=== PATIENT | male | born 1960 ===

== ENCOUNTER 2017-07-03 19:47 | Emergency (ER) | payer MEDICAID, MEDICARE, OTHER ==
[2017-07-03 19:49] VITALS: BMI 25.7
--- NOTE | 2017-07-03 20:07 | C.PDOC ---
History Of Present Illness 56 y/o male brought to the emergency department via ambulance for public intoxication. Patient admits to drinking alcohol for a while today. Denies any fall, pain, or injury. No homicidal or suicidal ideation. Patient is a heavy smoker and does report some wheezing for the past several days. Time Seen by Provider: 07/03/17 20:05 Chief Complaint (Nursing): Substance Abuse History Per: Patient History/Exam Limitations: no limitations Onset/Duration Of Symptoms: Hrs Current Symptoms Are (Timing): Still Present Modifying Factor(s): Alcohol Involuntary Hold By: None Additional History Per: EMS Past Medical History Reviewed: Historical Data, Nursing Documentation, Vital Signs Vital Signs: Last Vital Signs Temp 98.2 F 07/04/17 03:42 Pulse 91 H 07/04/17 03:42 Resp 20 07/04/17 03:42 BP 144/75 07/04/17 03:42 Pulse Ox 96 07/04/17 04:31 - Medical History PMH: Anemia, Anxiety, Asthma, Back Problems, Bipolar Disorder, COPD, Depression , Diabetes, Gastritis (secondary to ETOH), GERD, Hypercholesterolemia, Pancreatitis (secondary to ETOH), Schizophrenia, Seizures (secondary to ETOH withdrawal), Chronic Pain (low back pain ) Denies: CHF, Dementia, Emphysema, Parkinson's Disease, Peripheral Edema, Pneumonia, Pulmonary Embolism, Chronic Kidney Disease, Sexually Transmitted Disease, Sleep Apnea Surgical History: Back Surgery Denies: Pacemaker - [facility] Procedures ALCOHOL DETOXIFICATION (12/12/12) EXCISION OF ASCENDING COLON, ENDO, DIAGN (06/18/15) EXCISION OF CECUM, ENDO, DIAGN (06/18/15) EXCISION OF DESCENDING COLON, ENDO, DIAGN (06/18/15) EXCISION OF DUODENUM, ENDO, DIAGN (06/18/15) EXCISION OF ESOPHAGOGASTRIC JUNCTION, ENDO, DIAGN (06/18/15) EXCISION OF ILEUM, ENDO, DIAGN (06/18/15) EXCISION OF LUMBAR VERTEBRA, PERCUTANEOUS APPROACH, DIAGN (07/24/16) EXCISION OF STOMACH, ENDO, DIAGN (06/18/15) GROUP PSYCHOTHERAPY (04/07/17) INDIV PSYCHOTHERAPY FOR SUBSTANCE ABUSE, COGNITIV BEHAVIORAL (04/07/17) INDIV PSYCHOTHERAPY FOR SUBSTANCE ABUSE, MOTIVATION ENHANCE (04/07/17) INDIVID PSYCHOTHERAP NEC (09/16/14) INDIVIDUAL PSYCHOTHERAPY, BEHAVIORAL (10/21/16) INDIVIDUAL PSYCHOTHERAPY, COGNITIVE-BEHAVIORAL (01/26/17) INDIVIDUAL PSYCHOTHERAPY, SUPPORTIVE (08/06/16) INJECT/INFUSE NEC (10/13/14) MEDICATION MANAGEMENT (03/12/16) OTHER COUNSELING (04/26/16) OTHER GROUP THERAPY (09/16/14) PSYCHIA INTERV/EVAL NEC (08/18/14) REPOSITION LUMBAR VERTEBRA, PERCUTANEOUS APPROACH (07/24/16) SUPPLEMENT LUMBAR VERTEBRA WITH SYNTH SUB, PERC APPROACH (07/24/16) Family History: States: Diabetes - Social History Hx Tobacco Use: Yes (Heavy) Hx Alcohol Use: Yes Hx Substance Use: No - Immunization History Hx Tetanus Toxoid Vaccination: Yes (As per patient, TDaP uptodate ( about 3 years ago)) Hx Influenza Vaccination: No Hx Pneumococcal Vaccination: No Review Of Systems Except As Marked, All Systems Reviewed And Found Negative. Musculoskeletal: Negative for: Arm Pain, Back Pain, Leg Pain Psych: Negative for: Suicidal ideation (or homicidal) Physical Exam - Physical Exam Appears: Non-toxic, No Acute Distress Skin: Normal Color, Warm, Dry Head: Atraumatic, Normacephalic Eye(s): bilateral: Normal Inspection, EOMI Nose: Normal Oral Mucosa: Moist Neck: Normal ROM, Supple Chest: Symmetrical Cardiovascular: Rhythm Regular, No Murmur Respiratory: No Accessory Muscle Use, Rhonchi, Wheezing (slight), No Other ( respiratory distress) Extremity: Bilateral: Atraumatic, Normal Color And Temperature, Normal ROM Neurological/Psych: Normal Speech, Other (Alert and awake; answering questions appropriately) Gait: Unsteady ED Course And Treatment - Laboratory Results Result Diagrams: 07/03/17 20:14 07/04/17 01:42 O2 Sat by Pulse Oximetry: 96 (RA) Pulse Ox Interpretation: Normal - Radiology CXR: Interpreted by Me, Viewed By Me CXR Interpretation: Yes: No Acute Disease. No: Infiltrates Medical Decision Making Medical Decision Making: Time: 20:05 Initial Plan: --Blood work --Alcohol serum --Urine drug screen --Duoneb 3 ml INH --Peak Flow pre/post treatment Disposition - Disposition Referrals: Non [facility] Provider, [Primary Care Provider] - Disposition: HOME/ ROUTINE Disposition Time: 05:25 Condition: STABLE Prescriptions: Albuterol Sulfate [Proventil Hfa] 0.09 mg IH Q4 #1 inhaler Forms: [facility] (Korean) - POA Present On Arrival: None - Clinical Impression Clinical Impression: Alcohol abuse with intoxication, Asthma - Scribe Statement The provider has reviewed the documentation as recorded by the Scribe (Otilia Nicholas) Provider Attestation: All medical record entries made by the Scribe were at my direction and personally dictated by me. I have reviewed the chart and agree that the record accurately reflects my personal performance of the history, physical exam, medical decision making, and the department course for this patient. I have also personally directed, reviewed, and agree with the discharge instructions and disposition.
[2017-07-03] MEDS ORDERED: Albuterol-Ipratrop 3 mg / 0.5 (3 ml) UD INH STA (20:14)
[2017-07-03 20:16] LABS: BASO # 0.1 K/uL (0.0-0.2); BASO % 1.2 % (0.0-2.0); EOS # 0.2 K/uL (0.0-0.7); EOS % 1.8 % (0.0-4.0); HEMOGLOBIN 13.4 g/dL (12.0-18.0); LYMPH # 5.1 K/uL (1.0-4.3); LYMPH % 56.9 % (20.0-40.0); MEAN CELL VOLUME 94.8 fL (80.0-94.0); MEAN CORPUSCULAR HEMOGLOBIN 33.4 pg (27.0-31.0); MEAN CORPUSCULAR HGB CONC 35.3 g/dL (33.0-37.0); MEAN PLATELET VOLUME 6.7 fL (7.2-11.7); MONO # 0.6 K/uL (0.0-0.8); MONO % 7.1 % (0.0-10.0); NEUT # 2.9 K/uL (1.8-7.0); NRBC % 0.1 % (0.0-2.0); RED CELL DISTRIBUTION WIDTH 17.3 % (11.5-14.5); WHITE BLOOD COUNT 8.9 K/uL (4.8-10.8)
[2017-07-03] MEDS ORDERED: Albuterol-Ipratrop 3 mg / 0.5 (3 ml) UD ONE (20:16)
[2017-07-03 20:34] LABS: ALB/GLOB RATIO 1.1 (1.0-2.1); ALT/SGPT 15 U/L (21-72); AST/SGOT 60 U/L (17-59); BLOOD UREA NITROGEN 8 mg/dL (9-20); CALCIUM 8.3 mg/dl (8.6-10.4); GFR AFRICAN-AMERICAN > 60; GFR NON-AFRICAN AMERICAN > 60
[2017-07-03] MEDS ORDERED: Multivitamin (MVI) 10 ML, Thiamine 100 MG, Folic Acid 1 MG in Sodium Chloride 0.9% 1,00... IV ONE (21:23)
[2017-07-03 21:24] LABS: BARBITURATES, UR NEGATIVE (NEGATIVE); OPIATES, UR NEGATIVE (NEGATIVE); PHENCYCLIDINE, UR NEGATIVE (NEGATIVE)
[2017-07-03 21:26] LABS: BENZODIAZEPINES, UR POSITIVE (NEGATIVE)
[2017-07-03] MEDS ORDERED: Potassium Chloride 20 mEq 100 ML ONE (21:42)
[2017-07-04 01:56] LABS: BLOOD UREA NITROGEN 7 mg/dL (9-20); CALCIUM 8.2 mg/dl (8.6-10.4); GFR AFRICAN-AMERICAN > 60; GFR NON-AFRICAN AMERICAN > 60
[2017-07-04] MEDS ORDERED: Potassium Chloride 20 mEq 100 ML ONE (03:33)
[2017-07-04 03:43] VITALS: BP 144/75; PULSE 91; RESP 20; TEMP 98.2
[2017-07-04 04:31] VITALS: O2SAT 96
--- NOTE | 2017-07-04 13:22 | RAD ---
PROCEDURE: CHEST RADIOGRAPH, 1 VIEW HISTORY: SOB/ wheezing COMPARISON: None available. FINDINGS: LUNGS: Clear. PLEURA: No pneumothorax or pleural fluid seen. CARDIOVASCULAR: Normal. OSSEOUS STRUCTURES: Degenerative changes. VISUALIZED UPPER ABDOMEN: Normal. OTHER FINDINGS: None. IMPRESSION: No active disease.
== END 2017-07-04 06:54 | disposition home or self-care (01) ==
LOC: SUPCPDRO 19:47 → C.ER 19:47
DX: F10.129 Alcohol abuse with intoxication, unspecified (principal); J45.909 Unspecified asthma, uncomplicated; E11.9 Type 2 diabetes mellitus without complications; E78.00 Pure hypercholesterolemia, unspecified; F20.9 Schizophrenia, unspecified; F17.200 Nicotine dependence, unspecified, uncomplicated
CPT/HCPCS: 71045; 80048; 80053; 80320; 80324; 80345; 80346; 80349; 80353; 80358; 80361; 83992; 85025; 96361; 96374; 99285; J3411; J3480; J7040

== ENCOUNTER 2017-07-14 19:46 | Emergency (ER) | payer OTHER ==
[2017-07-14 19:46] VITALS: BMI 25.7
[2017-07-14] MEDS ORDERED: Albuterol-Ipratrop 3 mg / 0.5 (3 ml) UD IH STA (20:21)
[2017-07-14 20:52] LABS: BASO # 0.1 K/uL (0.0-0.2); BASO % 1.2 % (0.0-2.0); EOS # 0.2 K/uL (0.0-0.7); EOS % 2.2 % (0.0-4.0); HEMOGLOBIN 13.2 g/dL (12.0-18.0); LYMPH # 4.1 K/uL (1.0-4.3); LYMPH % 56.5 % (20.0-40.0); MEAN CORPUSCULAR HGB CONC 34.9 g/dL (33.0-37.0); MEAN PLATELET VOLUME 7.1 fL (7.2-11.7); MONO # 0.4 K/uL (0.0-0.8); MONO % 5.6 % (0.0-10.0); NEUT # 2.5 K/uL (1.8-7.0); NEUT % 34.5 % (50.0-75.0); NRBC % 0.1 % (0.0-2.0); RBC 3.9 Mil/uL (4.40-5.90); RED CELL DISTRIBUTION WIDTH 17.3 % (11.5-14.5); WHITE BLOOD COUNT 7.3 K/uL (4.8-10.8)
[2017-07-14 20:56] LABS: MEAN CELL VOLUME 97.4 fL (80.0-94.0)
[2017-07-14 21:03] LABS: ALB/GLOB RATIO 1.3 (1.0-2.1); ALBUMIN 4.2 g/dL (3.5-5.0); ALT/SGPT 48 U/L (21-72); AST/SGOT 72 U/L (17-59); BLOOD UREA NITROGEN 9 mg/dL (9-20); CALCIUM 8.2 mg/dl (8.6-10.4); GFR AFRICAN-AMERICAN > 60; GFR NON-AFRICAN AMERICAN > 60
[2017-07-14] MEDS ORDERED: Magnesium Sulfate 1 gm in D5W 1 GM/100 ML BAG IVPB STA (21:10)
[2017-07-14] MEDS ORDERED: Potassium Chloride 20 mEq ER Tab PO STA (21:11)
[2017-07-14 21:14] LABS: B-TYPE NATRIURETIC PEPTIDE 18.3 pg/mL (0-900)
[2017-07-14] MEDS ORDERED: Multivitamin (MVI) 10 ML, Thiamine 100 MG, Folic Acid 1 MG in Sodium Chloride 0.9% 1,00... IV STA (21:21)
[2017-07-14] MEDS ORDERED: Potassium Chloride 20 mEq ER Tab PO ONE (21:25)
[2017-07-14] MEDS ORDERED: Magnesium Sulfate 1 gm in D5W 1 GM/100 ML BAG IVPB ONE (21:25)
[2017-07-14 21:26] LABS: SQUAMOUS EPITHIAL < 1 /hpf (0-5); URINE BILIRUBIN NEGATIVE (NEGATIVE); URINE BLOOD NEGATIVE (NEGATIVE); URINE CLARITY Clear (Clear); URINE COLOR Straw (YELLOW); URINE GLUCOSE (UA) NORMAL (Normal); URINE LEUKOCYTE ESTERASE NEG Leu/uL (Negative); URINE PROTEIN NEGATIVE (NEGATIVE); URINE UROBILINOGEN NORMAL mg/dL (0.2-1.0)
[2017-07-14 21:40] LABS: BARBITURATES, UR NEGATIVE (NEGATIVE); OPIATES, UR NEGATIVE (NEGATIVE); PHENCYCLIDINE, UR NEGATIVE (NEGATIVE)
[2017-07-14 21:42] LABS: BENZODIAZEPINES, UR POSITIVE (NEGATIVE)
[2017-07-14] MEDS ORDERED: Multiple Vitamins Tab PO STA (21:49)
--- NOTE | 2017-07-14 23:27 | C.PDOC ---
Time Seen by Provider: 07/14/17 20:07 Chief Complaint (Nursing): Shortness Of Breath History Per: Patient, EMS History/Exam Limitations: intoxication Onset/Duration Of Symptoms: Hrs Current Symptoms Are (Timing): Still Present Current Respiratory Medications: See Home Med List Severity: Mild Reports Recently: Seen In ED Additional History Per: Prior Records Past Medical History Reviewed: Historical Data, Nursing Documentation, Vital Signs Vital Signs: Last Vital Signs Temp 98.7 F 07/14/17 19:50 Pulse 100 H 07/14/17 19:50 Resp 27 H 07/14/17 19:50 BP 154/100 H 07/14/17 19:50 Pulse Ox 100 07/14/17 19:50 - Medical History PMH: Anemia, Anxiety, Asthma, Back Problems, Bipolar Disorder, COPD, Depression , Diabetes, Gastritis (secondary to ETOH), GERD, Hypercholesterolemia, Pancreatitis (secondary to ETOH), Schizophrenia, Seizures (secondary to ETOH withdrawal), Chronic Pain (low back pain ) Surgical History: Back Surgery - [facility] Procedures ALCOHOL DETOXIFICATION (12/12/12) EXCISION OF ASCENDING COLON, ENDO, DIAGN (06/18/15) EXCISION OF CECUM, ENDO, DIAGN (06/18/15) EXCISION OF DESCENDING COLON, ENDO, DIAGN (06/18/15) EXCISION OF DUODENUM, ENDO, DIAGN (06/18/15) EXCISION OF ESOPHAGOGASTRIC JUNCTION, ENDO, DIAGN (06/18/15) EXCISION OF ILEUM, ENDO, DIAGN (06/18/15) EXCISION OF LUMBAR VERTEBRA, PERCUTANEOUS APPROACH, DIAGN (07/24/16) EXCISION OF STOMACH, ENDO, DIAGN (06/18/15) GROUP PSYCHOTHERAPY (04/07/17) INDIV PSYCHOTHERAPY FOR SUBSTANCE ABUSE, COGNITIV BEHAVIORAL (04/07/17) INDIV PSYCHOTHERAPY FOR SUBSTANCE ABUSE, MOTIVATION ENHANCE (04/07/17) INDIVID PSYCHOTHERAP NEC (09/16/14) INDIVIDUAL PSYCHOTHERAPY, BEHAVIORAL (10/21/16) INDIVIDUAL PSYCHOTHERAPY, COGNITIVE-BEHAVIORAL (01/26/17) INDIVIDUAL PSYCHOTHERAPY, SUPPORTIVE (08/06/16) INJECT/INFUSE NEC (10/13/14) MEDICATION MANAGEMENT (03/12/16) OTHER COUNSELING (04/26/16) OTHER GROUP THERAPY (09/16/14) PSYCHIA INTERV/EVAL NEC (08/18/14) REPOSITION LUMBAR VERTEBRA, PERCUTANEOUS APPROACH (07/24/16) SUPPLEMENT LUMBAR VERTEBRA WITH SYNTH SUB, PERC APPROACH (07/24/16) Family History: States: Diabetes - Social History Hx Tobacco Use: Yes (Heavy) Hx Alcohol Use: Yes Hx Substance Use: Yes - Immunization History Hx Tetanus Toxoid Vaccination: Yes (As per patient, TDaP uptodate ( about 3 years ago)) Hx Influenza Vaccination: No Hx Pneumococcal Vaccination: No Review Of Systems Except As Marked, All Systems Reviewed And Found Negative. Constitutional: Negative for: Fever ENT: Negative for: Throat Pain Cardiovascular: Negative for: Chest Pain Respiratory: Negative for: Hemoptysis Gastrointestinal: Negative for: Abdominal Pain Musculoskeletal: Negative for: Neck Pain Neurological: Negative for: Weakness, Numbness Physical Exam - Physical Exam Appears: Non-toxic, No Acute Distress, Other (AOB) Skin: Normal Color, Warm, Dry Head: Atraumatic, Normacephalic Eye(s): bilateral: PERRL, EOMI Neck: Normal ROM, Supple Cardiovascular: Rhythm Regular Respiratory: No Accessory Muscle Use, Wheezing (mild scattered) Gastrointestinal/Abdominal: Soft, No Tenderness Extremity: Normal ROM, No Pedal Edema, No Calf Tenderness Neurological/Psych: Oriented x3, Normal Motor, Normal Sensation ED Course And Treatment - Laboratory Results Result Diagrams: 07/14/17 20:47 07/14/17 20:47 Interpretation Of Abnormal: mild hypomagnesemia and mild hypokalemia ECG: Interpreted By Me, Viewed By Me ECG Rhythm: Sinus Rhythm, Nonspecific Changes ECG Interpretation: No Acute Changes Rate From EC O2 Sat by Pulse Oximetry: 100 Pulse Ox Interpretation: Normal - Radiology CXR: Interpreted by Me, Viewed By Me CXR Interpretation: Yes: No Acute Disease Progress Note: Lungs clear. Pt is clinically sober. Reassessment Condition: Improved Progress - Interventions Interventions:: Observation - Medications Administered Oral: Other (KCl) Inhaled nebulized: Anticholinergic, Beta-2 agonist Intravenous: Corticosteroid, Other (Mg) - Data Reviewed Data Reviewed: Lab, Diagnostic imaging, EKG, Old records - Patient Status Patient status: Mostly improved - Continuity of Care Discussed patient case with:: Patient, ED Nurse - Patient Plan Patient Plan: Discharge, F/U with PCP, Continue present meds Disposition Counseled Patient/Family Regarding: Studies Performed, Diagnosis, Need For Followup, Smoking Cessation - Disposition Referrals: [facility] [Outside] Disposition: HOME/ ROUTINE Disposition Time: 23:29 Condition: IMPROVED Additional Instructions: Continue your medications. Follow up with your doctor or in the clinic. Return to the ER if you develop worsening of symptoms or if you have any other concerns. Instructions: COPD Including Emphysema (DC), Alcohol Abuse and Alcoholism (DC) Forms: [facility] (Nepali) - Clinical Impression Clinical Impression: Alcohol intoxication, COPD (chronic obstructive pulmonary disease)
[2017-07-15 01:09] VITALS: BP 127/77; PULSE 94; RESP 16; TEMP 98; O2SAT 97
--- NOTE | 2017-07-15 09:30 | RAD ---
Chest x-ray two views History: Shortness of breath. Comparison: None available. Findings: Mild venous congestion. Mild right midlung atelectasis. Left hilar prominence. Tortuous aorta. Mild cardiomegaly. Degenerative changes in the spine. Impression: Mild venous congestion. Mild right midlung atelectasis. Left hilar prominence. Tortuous aorta. Mild cardiomegaly.
--- NOTE | 2017-07-15 22:24 | CARD ---
APPROVED REPORT EKG Measurement Heart [id number] <Conclusion> Normal sinus rhythm Left axis deviation with poor R wave progression Abnormal ECG
== END 2017-07-15 | disposition home or self-care (01) ==
LOC: C.ER 19:46
DX: J44.9 Chronic obstructive pulmonary disease, unspecified (principal); F10.129 Alcohol abuse with intoxication, unspecified; Y90.8 Blood alcohol level of 240 mg/100 ml or more; E87.6 Hypokalemia
CPT/HCPCS: 71046; 80053; 80320; 80324; 80345; 80346; 80349; 80353; 80358; 80361; 81001; 83735; 83880; 83992; 84484; 85025; 93005; 94640; 96365; 96375; 99285; J2930; J3475

== ENCOUNTER 2017-07-20 21:46 | Inpatient (IN) | payer OTHER ==
[2017-07-20 21:47] VITALS: BMI 25.7
[2017-07-20] MEDS ORDERED: Albuterol-Ipratrop 3 mg / 0.5 (3 ml) UD IH STA (22:12)
[2017-07-20] MEDS ORDERED: Albuterol 0.083% Inhal Sol (2.5 mg/3 mL) UD IH STA (22:12)
--- NOTE | 2017-07-20 22:12 | C.PDOC ---
History Of Present Illness 56 year old male, whose PMHx includes alcohol abuse, presents to the ED for evaluation of asthma exacerbation. Patient states he has been wheezing and having trouble breathing. He has been using his albuterol inhaler almost continuously with minimal relief. Review of prior records show that patient has been evaluated at [facility] ED and [place] ED almost every day within the past month for similar complaints. Patient was evaluated in this ED yesterday for same complaint. During his visit, he was given breathing treatments and was discharged with a prescription for a new albuterol inhaler. Patient states he tried to fill the albuterol prescription, but was told by the pharmacy that he used up his previous inhaler too soon. Patient denies fever, chills, chest pain , cough. Time Seen by Provider: 07/20/17 21:53 Chief Complaint (Nursing): Substance Abuse History Per: Patient History/Exam Limitations: no limitations Onset/Duration Of Symptoms: Hrs Current Symptoms Are (Timing): Still Present Suicide/Self Injury Attempted (Context): None Modifying Factor(s): Alcohol Associated Symptoms: denies: Suicidal Thoughts, Suicidal Plan Involuntary Hold By: None Recent travel outside of the [place]: No Additional History Per: Patient Past Medical History Reviewed: Historical Data, Nursing Documentation, Vital Signs Vital Signs: Last Vital Signs Temp 97.9 F 07/20/17 21:58 Pulse 101 H 07/20/17 21:58 Resp 20 07/20/17 21:58 BP 140/73 07/20/17 21:58 Pulse Ox 99 07/20/17 22:26 - Medical History PMH: Anemia, Anxiety, Asthma, Back Problems, Bipolar Disorder, COPD, Depression , Diabetes, Gastritis (secondary to ETOH), GERD, Hypercholesterolemia, Pancreatitis (secondary to ETOH), Schizophrenia, Seizures (secondary to ETOH withdrawal), Chronic Pain (low back pain ) Denies: Chronic Kidney Disease, Sexually Transmitted Disease Surgical History: Back Surgery - [facility] Procedures ALCOHOL DETOXIFICATION (12/12/12) EXCISION OF ASCENDING COLON, ENDO, DIAGN (06/18/15) EXCISION OF CECUM, ENDO, DIAGN (06/18/15) EXCISION OF DESCENDING COLON, ENDO, DIAGN (06/18/15) EXCISION OF DUODENUM, ENDO, DIAGN (06/18/15) EXCISION OF ESOPHAGOGASTRIC JUNCTION, ENDO, DIAGN (06/18/15) EXCISION OF ILEUM, ENDO, DIAGN (06/18/15) EXCISION OF LUMBAR VERTEBRA, PERCUTANEOUS APPROACH, DIAGN (07/24/16) EXCISION OF STOMACH, ENDO, DIAGN (06/18/15) GROUP PSYCHOTHERAPY (04/07/17) INDIV PSYCHOTHERAPY FOR SUBSTANCE ABUSE, COGNITIV BEHAVIORAL (04/07/17) INDIV PSYCHOTHERAPY FOR SUBSTANCE ABUSE, MOTIVATION ENHANCE (04/07/17) INDIVID PSYCHOTHERAP NEC (09/16/14) INDIVIDUAL PSYCHOTHERAPY, BEHAVIORAL (10/21/16) INDIVIDUAL PSYCHOTHERAPY, COGNITIVE-BEHAVIORAL (01/26/17) INDIVIDUAL PSYCHOTHERAPY, SUPPORTIVE (08/06/16) INJECT/INFUSE NEC (10/13/14) MEDICATION MANAGEMENT (03/12/16) OTHER COUNSELING (04/26/16) OTHER GROUP THERAPY (09/16/14) PSYCHIA INTERV/EVAL NEC (08/18/14) REPOSITION LUMBAR VERTEBRA, PERCUTANEOUS APPROACH (07/24/16) SUPPLEMENT LUMBAR VERTEBRA WITH SYNTH SUB, PERC APPROACH (07/24/16) Family History: States: Diabetes - Social History Hx Tobacco Use: Yes (Heavy) Hx Alcohol Use: Yes Hx Substance Use: Yes - Immunization History Hx Tetanus Toxoid Vaccination: Yes (As per patient, TDaP uptodate ( about 3 years ago)) Hx Influenza Vaccination: No Hx Pneumococcal Vaccination: No Review Of Systems Constitutional: Negative for: Fever, Chills Cardiovascular: Negative for: Chest Pain Respiratory: Positive for: Shortness of Breath, Wheezing. Negative for: Cough Psych: Positive for: Other (EtOH intoxication ) Physical Exam - Physical Exam Appears: Non-toxic, No Acute Distress, Other (sleeping comfortably in supine position. no signs of respiratory distress noted ) Skin: Normal Color, Warm, Dry Head: Atraumatic, Normacephalic Eye(s): bilateral: Normal Inspection Oral Mucosa: Moist, Other (alcohol on breath ) Neck: Supple Chest: Symmetrical, No Deformity, No Tenderness Cardiovascular: Rhythm Regular, No Murmur Respiratory: No Rales, No Rhonchi, Wheezing (expiratory ), Other (speaking in complete sentences ) Extremity: Normal ROM, Capillary Refill (less than 2 seconds ) Neurological/Psych: Oriented x3, Normal Speech, Normal Cognition ED Course And Treatment O2 Sat by Pulse Oximetry: 99 (on RA) Pulse Ox Interpretation: Normal Progress Note: Albuterol INH and Solu-Medrol IVP administered. Reevaluation Time: 00:11 Reassessment Condition: Unchanged (Patient continues to have diffuse wheezing with inspiration and expiration.) - Physician Consult Information Time Consulting Physician Contacted: 00:12 Physician Contacted: Aguila Rao Outcome Of Conversation: Patient kike admitted for exacerbation of asthma. Disposition - Disposition Disposition: ELOPEMENT - ER ONLY Disposition Time: 00:12 Condition: FAIR - POA Present On Arrival: None, Poor Glycemic Control - Clinical Impression Clinical Impression: Alcohol abuse with intoxication, Asthma exacerbation - Scribe Statement The provider has reviewed the documentation as recorded by the Scribe (Anel Rao) Provider Attestation: All medical record entries made by the Scribe were at my direction and personally dictated by me. I have reviewed the chart and agree that the record accurately reflects my personal performance of the history, physical exam, medical decision making, and the department course for this patient. I have also personally directed, reviewed, and agree with the discharge instructions and disposition.
[2017-07-20] MEDS ORDERED: Albuterol-Ipratrop 3 mg / 0.5 (3 ml) UD ONE (22:49)
[2017-07-20] MEDS ORDERED: Albuterol 0.083% Inhal Sol (2.5 mg/3 mL) UD ONE (22:49)
[2017-07-21 01:16] LABS: BASO % 0.1 % (0.0-2.0); HEMOGLOBIN 12.6 g/dL (12.0-18.0); LYMPH # 0.8 K/uL (1.0-4.3); LYMPH % 11.3 % (20.0-40.0); MEAN CELL VOLUME 97.7 fL (80.0-94.0); MEAN CORPUSCULAR HGB CONC 34.8 g/dL (33.0-37.0); MEAN PLATELET VOLUME 7.2 fL (7.2-11.7); MONO # 0.1 K/uL (0.0-0.8); NEUT # 6.2 K/uL (1.8-7.0); NEUT % 87.6 % (50.0-75.0); RBC 3.7 Mil/uL (4.40-5.90); RED CELL DISTRIBUTION WIDTH 16.9 % (11.5-14.5)
[2017-07-21 02:01] LABS: ALB/GLOB RATIO 1.4 (1.0-2.1); ALBUMIN 3.9 g/dL (3.5-5.0); ALT/SGPT 60 U/L (21-72); AST/SGOT 70 U/L (17-59); BLOOD UREA NITROGEN 16 mg/dL (9-20); CALCIUM 7.8 mg/dl (8.6-10.4); GFR AFRICAN-AMERICAN > 60; GFR NON-AFRICAN AMERICAN > 60
[2017-07-21] MEDS ORDERED: Potassium Chloride 20 mEq ER Tab PO STA ×2 (02:40→19:15)
[2017-07-21] MEDS: MethylPREDNISolone 40 mg Vial IVP SCH ×3 (06:11→21:21)
[2017-07-21] MEDS ORDERED: Albuterol-Ipratrop 3 mg / 0.5 (3 ml) UD INH SCH (08:00)
[2017-07-21 08:28] LABS: HEMOGLOBIN 13.1 g/dL (12.0-18.0); LYMPH # 0.7 K/uL (1.0-4.3); MEAN CELL VOLUME 98.3 fL (80.0-94.0); MEAN CORPUSCULAR HEMOGLOBIN 34.3 pg (27.0-31.0); MEAN CORPUSCULAR HGB CONC 34.9 g/dL (33.0-37.0); MEAN PLATELET VOLUME 7.6 fL (7.2-11.7); MONO # 0.1 K/uL (0.0-0.8); MONO % 0.8 % (0.0-10.0); NEUT % 88.2 % (50.0-75.0); RBC 3.83 Mil/uL (4.40-5.90); RED CELL DISTRIBUTION WIDTH 16.6 % (11.5-14.5); WHITE BLOOD COUNT 6.8 K/uL (4.8-10.8)
[2017-07-21] MEDS ORDERED: Potassium Chloride 20 mEq ER Tab PO ONE (08:30)
[2017-07-21] MEDS: (Novolog) Insulin Aspart, Recombinant 100 u/ml 10 ml vial SC SCH ×4 (08:30→21:21)
--- NOTE | 2017-07-21 08:31 | RAD ---
Chest x-ray single frontal view History: Shortness of breath. Comparison: 07/14/2017 Findings: Mild venous congestion. Punctate nodular density at the lateral aspect of the right midlung zone, nonspecific. Heart size within normal limits. Tortuous aorta. Degenerative changes in the spine and shoulders. Impression: Mild venous congestion. Punctate nodular density at the lateral aspect of the right midlung zone, nonspecific. Heart size within normal limits. Tortuous aorta.
[2017-07-21 08:37] LABS: ALB/GLOB RATIO 1.5 (1.0-2.1); ALBUMIN 4.2 g/dL (3.5-5.0); ALT/SGPT 60 U/L (21-72); AST/SGOT 81 U/L (17-59); BLOOD UREA NITROGEN 17 mg/dL (9-20); CALCIUM 8.2 mg/dl (8.6-10.4); GFR AFRICAN-AMERICAN > 60; GFR NON-AFRICAN AMERICAN > 60
[2017-07-21 08:38] LABS: AMYLASE 111 U/L (30-110)
[2017-07-21] MEDS ORDERED: Home Med 1 UNIT (Prednisone [Prednisone] 50 MG) PO SCH (10:00)
[2017-07-21] MEDS: Enoxaparin 40 mg Syringe SC SCH (10:15)
[2017-07-21] MEDS: Multivitamin With Minerals Tab PO SCH (10:15)
[2017-07-21 10:30] LABS: LIPASE 345 U/L (23-300)
[2017-07-21] MEDS: Fluticasone-Salmeterol 250-50mcg Diskus INH SCH ×2 (10:43→19:42)
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
[2017-07-21] MEDS ORDERED: Glucagon Recombinant 1 mg Inj IM PRN (13:15)
[2017-07-21] MEDS ORDERED: Dextrose 50% SYRINGE Inj (50 ml) IVP PRN (13:15)
[2017-07-21] MEDS: Albuterol-Ipratrop 3 mg / 0.5 (3 ml) UD INH PRN ×2 (14:22→19:42)
[2017-07-21] MEDS: Azithromycin 500mg/250ML NS 500 MG/250 ML BAG IVPB SCH (15:30)
--- NOTE | 2017-07-21 16:44 | CP.PCM.HP ---
Past Patient History - Infectious Disease Hx of Infectious Diseases: None - Tetanus Immunizations Tetanus Immunization: Unknown - Past Medical History & Family History Past Medical History?: Yes - Past Social History Smoking Status: Heavy Smoker > 10 Cigarettes Daily - CARDIAC Hx Hypercholesterolemia: Yes - PULMONARY Hx Asthma: Yes Hx Chronic Obstructive Pulmonary Disease (COPD): Yes - NEUROLOGICAL Hx Seizures: Yes (secondary to ETOH withdrawal) - HEENT Hx HEENT Problems: No - RENAL Hx Chronic Kidney Disease: No - ENDOCRINE/METABOLIC Hx Endocrine Disorders: No - HEMATOLOGICAL/ONCOLOGICAL Hx Anemia: Yes - INTEGUMENTARY Hx Dermatological Problems: No - MUSCULOSKELETAL/RHEUMATOLOGICAL Hx Musculoskeletal Disorders: Yes Hx Falls: Yes (while being drunk) - GASTROINTESTINAL Hx Gastritis: Yes (secondary to ETOH) Hx Pancreatitis: Yes (secondary to ETOH) - GENITOURINARY/GYNECOLOGICAL Hx Sexually Transmitted Disorders: No - PSYCHIATRIC Hx Anxiety: Yes Hx Bipolar Disorder: Yes Hx Depression: Yes Hx Schizophrenia: Yes Hx Substance Use: Yes - SURGICAL HISTORY Hx Surgeries: Yes - ANESTHESIA Hx Anesthesia: Yes Hx Anesthesia Reactions: No Hx Malignant Hyperthermia: No Meds Allergies/Adverse Reactions: Allergies Allergy/AdvReac Type Severity Reaction Status Date / Time No Known Allergies Allergy Verified 07/20/17 22:04 Physical Exam - Constitutional Appears: Well - Head Exam Head Exam: ATRAUMATIC, NORMAL INSPECTION, NORMOCEPHALIC - Eye Exam Eye Exam: EOMI, Normal appearance, PERRL Pupil Exam: NORMAL ACCOMODATION, PERRL - ENT Exam ENT Exam: Mucous Membranes Moist, Normal Exam - Neck Exam Neck exam: Positive for: Normal Inspection - Respiratory Exam Respiratory Exam: Decreased Breath Sounds - Cardiovascular Exam Cardiovascular Exam: REGULAR RHYTHM, +S1, +S2 - GI/Abdominal Exam GI & Abdominal Exam: Diminished Bowel Sounds, Soft - Rectal Exam Rectal Exam: Deferred Results - Vital Signs Recent Vital Signs: Last Vital Signs Temp 98.7 F 07/21/17 15:58 Pulse 104 H 07/21/17 15:58 Resp 20 07/21/17 15:58 BP 180/82 H 07/21/17 15:58 Pulse Ox 100 07/21/17 15:58 - Labs Result Diagrams: 07/21/17 08:13 07/21/17 08:13 Labs: Laboratory Results - last 24 hr 07/20/17 07/21/17 07/21/17 22:18 01:09 01:09 WBC 7.0 RBC 3.70 L Hgb 12.6 Hct 36.2 MCV 97.7 H MCH 34.0 H MCHC 34.8 RDW 16.9 H Plt Count 225 D MPV 7.2 Neut % (Auto) 87.6 H Lymph % (Auto) 11.3 L [place] % (Auto) 1.0 Eos % (Auto) 0.0 Baso % (Auto) 0.1 Neut # (Auto) 6.2 Lymph # (Auto) 0.8 L [place] # (Auto) 0.1 Eos # (Auto) 0.0 Baso # (Auto) 0.0 Sodium 141 Potassium 3.2 L Chloride 102 Carbon Dioxide 23 Anion Gap 19 BUN 16 Creatinine 0.6 L Est GFR ( Amer) > 60 Est GFR (Non-Af Amer) > 60 POC Glucose (mg/dL) 133 H Random Glucose 210 H Calcium 7.8 L Total Bilirubin 0.7 AST 70 H ALT 60 Alkaline Phosphatase 200 H D Total Protein 6.6 Albumin 3.9 Globulin 2.7 Albumin/Globulin Ratio 1.4 Amylase Lipase Alcohol, Quantitative 294 H 07/21/17 07/21/17 07/21/17 05:57 08:13 08:13 WBC 6.8 RBC 3.83 L Hgb 13.1 Hct 37.6 MCV 98.3 H MCH 34.3 H MCHC 34.9 RDW 16.6 H Plt Count 260 MPV 7.6 Neut % (Auto) 88.2 H Lymph % (Auto) 11.0 L [place] % (Auto) 0.8 Eos % (Auto) 0.0 Baso % (Auto) 0.0 Neut # (Auto) 6.0 Lymph # (Auto) 0.7 L [place] # (Auto) 0.1 Eos # (Auto) 0.0 Baso # (Auto) 0.0 Sodium 139 Potassium 3.5 L Chloride 100 Carbon Dioxide 22 Anion Gap 20 BUN 17 Creatinine 0.6 L Est GFR ( Amer) > 60 Est GFR (Non-Af Amer) > 60 POC Glucose (mg/dL) 210 H Random Glucose 224 H Calcium 8.2 L Total Bilirubin 0.9 AST 81 H ALT 60 Alkaline Phosphatase 205 H Total Protein 7.1 Albumin 4.2 Globulin 2.9 Albumin/Globulin Ratio 1.5 Amylase 111 H Lipase 345 H Alcohol, Quantitative 07/21/17 07/21/17 11:04 16:25 WBC RBC Hgb Hct MCV MCH MCHC RDW Plt Count MPV Neut % (Auto) Lymph % (Auto) [place] % (Auto) Eos % (Auto) Baso % (Auto) Neut # (Auto) Lymph # (Auto) [place] # (Auto) Eos # (Auto) Baso # (Auto) Sodium Potassium Chloride Carbon Dioxide Anion Gap BUN Creatinine Est GFR ( Amer) Est GFR (Non-Af Amer) POC Glucose (mg/dL) 153 H 161 H Random Glucose Calcium Total Bilirubin AST ALT Alkaline Phosphatase Total Protein Albumin Globulin Albumin/Globulin Ratio Amylase Lipase Alcohol, Quantitative
[2017-07-21] MEDS: LIPASE/PROTEASE/AMYLASE 4,200 U ECC PO SCH (17:23)
[2017-07-22] MEDS: MethylPREDNISolone 40 mg Vial IVP SCH ×3 (05:29→21:42)
[2017-07-22 07:58] LABS: BASO % 0.2 % (0.0-2.0); HEMOGLOBIN 13.4 g/dL (12.0-18.0); LYMPH # 0.5 K/uL (1.0-4.3); LYMPH % 5.7 % (20.0-40.0); MEAN CELL VOLUME 97.4 fL (80.0-94.0); MEAN CORPUSCULAR HEMOGLOBIN 34.2 pg (27.0-31.0); MEAN CORPUSCULAR HGB CONC 35.1 g/dL (33.0-37.0); MEAN PLATELET VOLUME 7.6 fL (7.2-11.7); MONO # 0.3 K/uL (0.0-0.8); MONO % 4.2 % (0.0-10.0); NEUT # 7.2 K/uL (1.8-7.0); NEUT % 89.9 % (50.0-75.0); NRBC % 0.1 % (0.0-2.0); PLATELET COUNT 233 K/uL (130-400); RBC 3.93 Mil/uL (4.40-5.90); RED CELL DISTRIBUTION WIDTH 16.2 % (11.5-14.5)
[2017-07-22 08:16] LABS: ALB/GLOB RATIO 1.4 (1.0-2.1); ALT/SGPT 44 U/L (21-72); AST/SGOT 54 U/L (17-59); BLOOD UREA NITROGEN 14 mg/dL (9-20); CALCIUM 8.6 mg/dl (8.6-10.4); GFR AFRICAN-AMERICAN > 60; GFR NON-AFRICAN AMERICAN > 60
[2017-07-22] MEDS: LIPASE/PROTEASE/AMYLASE 4,200 U ECC PO SCH ×3 (08:24→16:59)
[2017-07-22] MEDS: (Novolog) Insulin Aspart, Recombinant 100 u/ml 10 ml vial SC SCH ×5 (08:25→21:28)
[2017-07-22] MEDS: Multivitamin With Minerals Tab PO SCH (09:00)
[2017-07-22] MEDS: Enoxaparin 40 mg Syringe SC SCH (09:00)
[2017-07-22 09:41] LABS: LYMPHOCYTE 9 % (20-40); MONOCYTE 5 % (0-10); NEUTROPHIL 86 % (50-75); PLATELET ESTIMATE NORMAL (NORMAL); TOTAL CELLS COUNTED 100
[2017-07-22] MEDS: Fluticasone-Salmeterol 250-50mcg Diskus INH SCH ×2 (13:07→19:33)
[2017-07-22] MEDS: Albuterol-Ipratrop 3 mg / 0.5 (3 ml) UD INH PRN ×2 (13:09→19:33)
--- NOTE | 2017-07-22 13:27 | CP.PCM.PN ---
Subjective - Date & Time of Evaluation Date of Evaluation: 07/22/17 Time of Evaluation: 13:24 - Subjective Subjective: PGY2 progress note for Dr. Rao Pt seen and examined at bedside. No acute events overnight. No acute events overnight. Pt is resting comfortably. He still c/o of slight shortness of breath. Denies having any CP, abd pain, N/v/D/C, F/C. Pt states that last drink was about 3 days ago. He states that once in the past he has had seizures due to etoh withdrawal. Pt c/o feeling itching all over his body and c /o hand tremors. denies feeling agitated or seeing hallucinations. Objective - Vital Signs/Intake and Output Vital Signs (last 24 hours): Temp Pulse Resp BP Pulse Ox 98.1 F 76 18 168/83 H 100 07/22/17 07:30 07/22/17 07:30 07/22/17 07:30 07/22/17 07:30 07/22/17 07:30 - Medications Medications: Current Medications Albuterol/Ipratropium (Duoneb 3 Mg/0.5 Mg (3 Ml) Ud) 3 ml INH RQ6 PRN PRN Reason: Shortness of Breath Last Admin: 07/22/17 13:09 Dose: 3 ml Chlordiazepoxide (Librium) 25 mg PO TID [facility] PRN Reason: Taper Stop: 07/25/17 11:59 Last Admin: 07/22/17 13:01 Dose: 25 mg Dextrose (Dextrose 50% Inj) 0 ml IVP .STAT PRN; Protocol PRN Reason: Hypoglycemia Protocol Dextrose (Glutose 15) 0 gm PO .ONCE PRN; Protocol PRN Reason: Hypoglycemia Protocol Enoxaparin Sodium (Lovenox) 40 mg SC DAILY [facility] Last Admin: 07/22/17 09:00 Dose: 40 mg Famotidine (Pepcid) 20 mg PO BID [facility] Last Admin: 07/22/17 09:00 Dose: 20 mg Folic Acid (Folic Acid) 1 mg PO DAILY [facility] Last Admin: 07/22/17 09:00 Dose: 1 mg Gabapentin (Neurontin) 100 mg PO TID [facility] Last Admin: 07/22/17 13:01 Dose: 100 mg Glucagon (Glucagen Diagnostic Kit) 0 mg IM .STAT PRN; Protocol PRN Reason: Hypoglycemia Protocol Hydrochlorothiazide (Microzide) 12.5 mg PO DAILY [facility] Last Admin: 07/22/17 09:00 Dose: 12.5 mg Dextrose (Dextrose 5% In Water 1000 Ml) 1,000 mls @ 0 mls/hr IV .Q0M PRN; Protocol; Per Protocol PRN Reason: Hypoglycemia Protocol Ceftriaxone Sodium 1 gm/ (Sodium Chloride) 100 mls @ 200 mls/hr IVPB Q12H [facility] PRN Reason: Protocol Stop: 07/26/17 17:31 Last Admin: 07/22/17 05:29 Dose: 200 mls/hr Azithromycin (Zithromax 500mg In Ns Addvantage) 500 mg in 250 mls @ 167 mls/hr IVPB Q24H [facility] PRN Reason: Protocol Stop: 07/26/17 16:01 Last Admin: 07/21/17 15:30 Dose: 167 mls/hr Insulin Aspart (Novolog) 0 unit SC ACHS [facility] PRN Reason: Protocol Last Admin: 07/22/17 12:39 Dose: 2 unit Lorazepam (Ativan) 1 mg IVP Q4H PRN PRN Reason: Seizure activity Metformin HCl (Glucophage) 850 mg PO DAILY [facility] Last Admin: 07/22/17 09:00 Dose: 850 mg Methylprednisolone (Solu-Medrol) 40 mg IVP Q8 [facility] Last Admin: 07/22/17 13:01 Dose: 40 mg Montelukast Sodium (Singulair) 10 mg PO HS [facility] Last Admin: 07/21/17 21:21 Dose: 10 mg Multivitamins/Minerals (Therapeutic-M Tab) 1 tab PO DAILY [facility] Last Admin: 07/22/17 09:00 Dose: 1 tab Pneumococcal Polyvalent Vaccine (Pneumovax 23 Vaccine) 0.5 ml IM .ONCE ONE Stop: 07/23/17 14:01 Fluticasone/Salmeterol (Advair Diskus 250/50) 1 puff INH RQ12 [facility] Last Admin: 07/22/17 13:07 Dose: 1 puff Thiamine HCl (Vitamin B1 Tab) 100 mg PO DAILY [facility] Last Admin: 07/22/17 09:00 Dose: 100 mg Trazodone HCl (Desyrel) 50 mg PO HS PRN PRN Reason: Insomnia - Labs Labs: 07/22/17 07:49 04/13/18 07:49 - Constitutional Appears: Non-toxic, No Acute Distress - Head Exam Head Exam: ATRAUMATIC - ENT Exam ENT Exam: Mucous Membranes Moist - Respiratory Exam Respiratory Exam: Clear to Ausculation Bilateral. absent: Rales, Rhonchi, Wheezes - Cardiovascular Exam Cardiovascular Exam: REGULAR RHYTHM, +S1, +S2 - GI/Abdominal Exam GI & Abdominal Exam: Soft, Normal Bowel Sounds. absent: Distended, Firm, Guarding, Rigid, Tenderness, Organomegaly - Extremities Exam Extremities Exam: absent: Pedal Edema, Tenderness - Neurological Exam Neurological Exam: Alert, Awake, Oriented x3 Additional comments: hand tremors noted. - Psychiatric Exam Psychiatric exam: Normal Affect, Normal Mood - Skin Skin Exam: Dry, Intact, Normal Color, Warm Assessment and Plan - Assessment and Plan (Free Text) Assessment: Asthma exacerbation Chest xray 07/21: mild venous congestion. punctate nodular density at lateral aspect right midlung zone, nonspecific. heart size within normal limits. tortuous aorta. degenerative changes in spine and shoulders. duonebs q6prn solumedrol 40mg IV q12h advair 250/50 Q12h singulair 10mg PO HS will cover with rocephin and zithromax for 5 days. patient had recent hospitalization at [facility] 07/06/17. Alcohol abuse alcohol level 294 on admission [facility] protocol seizure precautions librium taper ativan 1 q4prn seizure activity thiamine 100mg PO daily folic acid 1mg PO daily multivitamin daily HTN continue HCTZ 12.5mg PO daily Diabetes last A1c 5.4 on 07/07/17, prior was 6.5 on 04/14/17 continue metformin 850mg PO daily, ISS hypoglycemia protocol Prophylactic measure pepcid 20mg PO BID Lovenox 40mg SC daily Elevated LFTs will check abd US All management as per Dr. Carl Rao
--- NOTE | 2017-07-22 16:06 | CP.PCM.PN ---
Subjective - Date & Time of Evaluation Date of Evaluation: 07/22/17 Time of Evaluation: 07:40 - Subjective Subjective: clinically same Objective - Vital Signs/Intake and Output Vital Signs (last 24 hours): Temp Pulse Resp BP Pulse Ox 98 F 101 H 20 172/89 H 98 07/22/17 13:43 07/22/17 13:43 07/22/17 13:43 07/22/17 13:43 07/22/17 13:43 - Medications Medications: Current Medications Albuterol/Ipratropium (Duoneb 3 Mg/0.5 Mg (3 Ml) Ud) 3 ml INH RQ6 PRN PRN Reason: Shortness of Breath Last Admin: 07/22/17 13:09 Dose: 3 ml Chlordiazepoxide (Librium) 25 mg PO TID [facility] PRN Reason: Taper Stop: 07/25/17 11:59 Last Admin: 07/22/17 13:01 Dose: 25 mg Clonidine HCl (Catapres) 0.1 mg PO BID PRN PRN Reason: Systolic Blood Pressure Dextrose (Dextrose 50% Inj) 0 ml IVP .STAT PRN; Protocol PRN Reason: Hypoglycemia Protocol Dextrose (Glutose 15) 0 gm PO .ONCE PRN; Protocol PRN Reason: Hypoglycemia Protocol Enoxaparin Sodium (Lovenox) 40 mg SC DAILY [facility] Last Admin: 07/22/17 09:00 Dose: 40 mg Famotidine (Pepcid) 20 mg PO BID [facility] Last Admin: 07/22/17 09:00 Dose: 20 mg Folic Acid (Folic Acid) 1 mg PO DAILY [facility] Last Admin: 07/22/17 09:00 Dose: 1 mg Gabapentin (Neurontin) 100 mg PO TID [facility] Last Admin: 07/22/17 13:01 Dose: 100 mg Glucagon (Glucagen Diagnostic Kit) 0 mg IM .STAT PRN; Protocol PRN Reason: Hypoglycemia Protocol Hydrochlorothiazide (Microzide) 12.5 mg PO DAILY [facility] Last Admin: 07/22/17 09:00 Dose: 12.5 mg Dextrose (Dextrose 5% In Water 1000 Ml) 1,000 mls @ 0 mls/hr IV .Q0M PRN; Protocol; Per Protocol PRN Reason: Hypoglycemia Protocol Ceftriaxone Sodium 1 gm/ (Sodium Chloride) 100 mls @ 200 mls/hr IVPB Q12H [facility] PRN Reason: Protocol Stop: 07/26/17 17:31 Last Admin: 07/22/17 05:29 Dose: 200 mls/hr Azithromycin (Zithromax 500mg In Ns Addvantage) 500 mg in 250 mls @ 167 mls/hr IVPB Q24H [facility] PRN Reason: Protocol Stop: 07/26/17 16:01 Last Admin: 07/21/17 15:30 Dose: 167 mls/hr Insulin Aspart (Novolog) 0 unit SC ACHS [facility] PRN Reason: Protocol Last Admin: 07/22/17 12:39 Dose: 2 unit Lorazepam (Ativan) 1 mg IVP Q4H PRN PRN Reason: Seizure activity Metformin HCl (Glucophage) 850 mg PO DAILY [facility] Last Admin: 07/22/17 09:00 Dose: 850 mg Methylprednisolone (Solu-Medrol) 40 mg IVP Q12 [facility] Montelukast Sodium (Singulair) 10 mg PO HS [facility] Last Admin: 07/21/17 21:21 Dose: 10 mg Multivitamins/Minerals (Therapeutic-M Tab) 1 tab PO DAILY [facility] Last Admin: 07/22/17 09:00 Dose: 1 tab Pneumococcal Polyvalent Vaccine (Pneumovax 23 Vaccine) 0.5 ml IM .ONCE ONE Stop: 07/23/17 14:01 Fluticasone/Salmeterol (Advair Diskus 250/50) 1 puff INH RQ12 [facility] Last Admin: 07/22/17 13:07 Dose: 1 puff Thiamine HCl (Vitamin B1 Tab) 100 mg PO DAILY [facility] Last Admin: 07/22/17 09:00 Dose: 100 mg Trazodone HCl (Desyrel) 50 mg PO HS PRN PRN Reason: Insomnia - Labs Labs: 07/22/17 07:49 07/22/17 07:49 - Constitutional Appears: Well - Head Exam Head Exam: ATRAUMATIC, NORMAL INSPECTION, NORMOCEPHALIC - Eye Exam Eye Exam: EOMI, Normal appearance, PERRL Pupil Exam: NORMAL ACCOMODATION, PERRL - ENT Exam ENT Exam: Mucous Membranes Moist, Normal Exam - Neck Exam Neck Exam: Full ROM, Normal Inspection. absent: Lymphadenopathy - Respiratory Exam Respiratory Exam: Decreased Breath Sounds - Cardiovascular Exam Cardiovascular Exam: REGULAR RHYTHM, +S1, +S2 - GI/Abdominal Exam GI & Abdominal Exam: Soft, Diminished Bowel Sounds - Rectal Exam Rectal Exam: Deferred
[2017-07-22] MEDS: Azithromycin 500mg/250ML NS 500 MG/250 ML BAG IVPB SCH (17:05)
[2017-07-23 00:11] VITALS: RESP 20
[2017-07-23] MEDS: (Novolog) Insulin Aspart, Recombinant 100 u/ml 10 ml vial SC SCH ×5 (08:00→22:17)
[2017-07-23] MEDS: LIPASE/PROTEASE/AMYLASE 4,200 U ECC PO SCH ×3 (08:01→17:24)
[2017-07-23 08:05] LABS: BASO % 0.1 % (0.0-2.0); HEMOGLOBIN 13.5 g/dL (12.0-18.0); LYMPH # 0.7 K/uL (1.0-4.3); LYMPH % 8.7 % (20.0-40.0); MEAN CELL VOLUME 99.2 fL (80.0-94.0); MEAN CORPUSCULAR HEMOGLOBIN 34.4 pg (27.0-31.0); MEAN CORPUSCULAR HGB CONC 34.7 g/dL (33.0-37.0); MEAN PLATELET VOLUME 7.8 fL (7.2-11.7); MONO # 0.4 K/uL (0.0-0.8); MONO % 5.6 % (0.0-10.0); NEUT # 6.6 K/uL (1.8-7.0); NEUT % 85.6 % (50.0-75.0); NRBC % 0.1 % (0.0-2.0); PLATELET COUNT 212 K/uL (130-400); RBC 3.92 Mil/uL (4.40-5.90); RED CELL DISTRIBUTION WIDTH 16.4 % (11.5-14.5); WHITE BLOOD COUNT 7.8 K/uL (4.8-10.8)
[2017-07-23] MEDS: Fluticasone-Salmeterol 250-50mcg Diskus INH SCH ×2 (08:06→19:52)
[2017-07-23] MEDS: Albuterol-Ipratrop 3 mg / 0.5 (3 ml) UD INH PRN ×2 (08:06→19:52)
[2017-07-23 08:30] LABS: ALB/GLOB RATIO 1.3 (1.0-2.1); ALT/SGPT 42 U/L (21-72); AST/SGOT 31 U/L (17-59); BLOOD UREA NITROGEN 18 mg/dL (9-20); CALCIUM 8.8 mg/dl (8.6-10.4); GFR AFRICAN-AMERICAN > 60; GFR NON-AFRICAN AMERICAN > 60
[2017-07-23] MEDS: Potassium Chloride 20 mEq ER Tab PO SCH (09:16)
[2017-07-23] MEDS: Enoxaparin 40 mg Syringe SC SCH (09:16)
[2017-07-23] MEDS: Multivitamin With Minerals Tab PO SCH (09:17)
[2017-07-23] MEDS: MethylPREDNISolone 40 mg Vial IVP SCH ×2 (09:17→21:28)
[2017-07-23 10:10] LABS: LYMPHOCYTE 6 % (20-40); MONOCYTE 5 % (0-10); NEUTROPHIL 89 % (50-75); PLATELET ESTIMATE NORMAL (NORMAL); TOTAL CELLS COUNTED 100
[2017-07-23 10:11] LABS: ANISOCYTOSIS SLIGHT; STOMATOCYTES SLIGHT
--- NOTE | 2017-07-23 10:25 | US ---
HISTORY: abdominal pain, abnormal LFTs COMPARISON: None. TECHNIQUE: Sonographic evaluation of the abdomen. FINDINGS: LIVER: Measures 15 cm. Heterogeneous increased echogenicity of the liver parenchyma. No mass. No intrahepatic bile duct dilatation. GALLBLADDER: Unremarkable. No gallstones. COMMON BILE DUCT: Measures 4.1 mm. No stones. No dilatation. PANCREAS: Unremarkable as visualized. No mass. No ductal dilatation. RIGHT KIDNEY: Measures 12.1 x 5.8 x 6.9cm. Normal echogenicity. No calculus, mass, or hydronephrosis. LEFT KIDNEY: Measures 11.9 x 4 x 5.46cm. Normal echogenicity. No calculus, mass, or hydronephrosis. SPLEEN: Normal in size and contour. No mass. AORTA: No aneurysmal dilatation. IVC: Unremarkable. OTHER FINDINGS: None. IMPRESSION: Heterogeneous echogenic liver likely likely due to [id number] steatosis. No evidence of cholelithiasis or cholecystitis. 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
--- NOTE | 2017-07-23 12:22 | CP.PCM.PN ---
Subjective - Date & Time of Evaluation Date of Evaluation: 07/23/17 Time of Evaluation: 08:20 - Subjective Subjective: clinically same Objective - Vital Signs/Intake and Output Vital Signs (last 24 hours): Temp Pulse Resp BP Pulse Ox 97.4 F L 67 20 158/89 H 100 07/23/17 07:20 07/23/17 07:20 07/23/17 07:20 07/23/17 07:20 07/23/17 07:20 - Medications Medications: Current Medications Albuterol/Ipratropium (Duoneb 3 Mg/0.5 Mg (3 Ml) Ud) 3 ml INH RQ6 PRN PRN Reason: Shortness of Breath Last Admin: 07/23/17 08:06 Dose: 3 ml Chlordiazepoxide (Librium) 25 mg PO BID [facility] PRN Reason: Taper Stop: 07/25/17 11:59 Last Admin: 07/23/17 09:16 Dose: 25 mg Clonidine HCl (Catapres) 0.1 mg PO BID PRN PRN Reason: Systolic Blood Pressure Last Admin: 07/22/17 16:59 Dose: 0.1 mg Dextrose (Dextrose 50% Inj) 0 ml IVP .STAT PRN; Protocol PRN Reason: Hypoglycemia Protocol Dextrose (Glutose 15) 0 gm PO .ONCE PRN; Protocol PRN Reason: Hypoglycemia Protocol Enoxaparin Sodium (Lovenox) 40 mg SC DAILY [facility] Last Admin: 07/23/17 09:16 Dose: 40 mg Famotidine (Pepcid) 20 mg PO BID [facility] Last Admin: 07/23/17 09:17 Dose: 20 mg Folic Acid (Folic Acid) 1 mg PO DAILY [facility] Last Admin: 07/23/17 09:16 Dose: 1 mg Gabapentin (Neurontin) 100 mg PO TID [facility] Last Admin: 07/23/17 09:17 Dose: 100 mg Glucagon (Glucagen Diagnostic Kit) 0 mg IM .STAT PRN; Protocol PRN Reason: Hypoglycemia Protocol Hydrochlorothiazide (Microzide) 12.5 mg PO DAILY [facility] Last Admin: 07/23/17 09:17 Dose: 12.5 mg Dextrose (Dextrose 5% In Water 1000 Ml) 1,000 mls @ 0 mls/hr IV .Q0M PRN; Protocol; Per Protocol PRN Reason: Hypoglycemia Protocol Ceftriaxone Sodium 1 gm/ (Sodium Chloride) 100 mls @ 200 mls/hr IVPB Q12H [facility] PRN Reason: Protocol Stop: 07/26/17 17:31 Last Admin: 07/23/17 06:49 Dose: 200 mls/hr Azithromycin (Zithromax 500mg In Ns Addvantage) 500 mg in 250 mls @ 167 mls/hr IVPB Q24H [facility] PRN Reason: Protocol Stop: 07/26/17 16:01 Last Admin: 07/22/17 17:05 Dose: 167 mls/hr Insulin Aspart (Novolog) 0 unit SC ACHS [facility] PRN Reason: Protocol Last Admin: 07/23/17 11:48 Dose: 3 unit Lorazepam (Ativan) 1 mg IVP Q4H PRN PRN Reason: Seizure activity Metformin HCl (Glucophage) 850 mg PO DAILY [facility] Last Admin: 07/23/17 09:16 Dose: 850 mg Methylprednisolone (Solu-Medrol) 40 mg IVP Q12 [facility] Last Admin: 07/23/17 09:17 Dose: 40 mg Montelukast Sodium (Singulair) 10 mg PO HS [facility] Last Admin: 07/22/17 21:42 Dose: 10 mg Multivitamins/Minerals (Therapeutic-M Tab) 1 tab PO DAILY [facility] Last Admin: 07/23/17 09:17 Dose: 1 tab Pneumococcal Polyvalent Vaccine (Pneumovax 23 Vaccine) 0.5 ml IM .ONCE ONE Stop: 07/23/17 14:01 Potassium Chloride (K-Dur 20 Meq Er Tab) 20 meq PO DAILY [facility] Last Admin: 07/23/17 09:16 Dose: 20 meq Fluticasone/Salmeterol (Advair Diskus 250/50) 1 puff INH RQ12 [facility] Last Admin: 07/23/17 08:06 Dose: 1 puff Thiamine HCl (Vitamin B1 Tab) 100 mg PO DAILY [facility] Last Admin: 07/23/17 09:17 Dose: 100 mg Trazodone HCl (Desyrel) 50 mg PO HS PRN PRN Reason: Insomnia - Labs Labs: 07/23/17 08:00 07/23/17 07:55 - Constitutional Appears: Well - Head Exam Head Exam: ATRAUMATIC, NORMAL INSPECTION, NORMOCEPHALIC - Eye Exam Eye Exam: EOMI, Normal appearance, PERRL Pupil Exam: NORMAL ACCOMODATION, PERRL - ENT Exam ENT Exam: Mucous Membranes Moist, Normal Exam - Neck Exam Neck Exam: Full ROM, Normal Inspection. absent: Lymphadenopathy - Respiratory Exam Respiratory Exam: Decreased Breath Sounds - Cardiovascular Exam Cardiovascular Exam: REGULAR RHYTHM, +S1, +S2 - GI/Abdominal Exam GI & Abdominal Exam: Soft, Diminished Bowel Sounds - Rectal Exam Rectal Exam: Deferred
[2017-07-23] MEDS ORDERED: Pneumococcal 23-Valent Vaccine IM ONE (14:00)
[2017-07-23] MEDS: Azithromycin 500mg/250ML NS 500 MG/250 ML BAG IVPB SCH (16:17)
[2017-07-24] MEDS: Albuterol-Ipratrop 3 mg / 0.5 (3 ml) UD INH PRN (07:54)
[2017-07-24] MEDS: Fluticasone-Salmeterol 250-50mcg Diskus INH SCH (07:54)
[2017-07-24] MEDS: (Novolog) Insulin Aspart, Recombinant 100 u/ml 10 ml vial SC SCH ×4 (08:21→21:35)
[2017-07-24] MEDS: LIPASE/PROTEASE/AMYLASE 4,200 U ECC PO SCH ×3 (08:21→16:55)
[2017-07-24] MEDS: Enoxaparin 40 mg Syringe SC SCH (09:48)
[2017-07-24] MEDS: Potassium Chloride 20 mEq ER Tab PO SCH (09:49)
[2017-07-24] MEDS: Multivitamin With Minerals Tab PO SCH (09:49)
[2017-07-24] MEDS: MethylPREDNISolone 40 mg Vial IVP SCH ×2 (09:49→21:36)
[2017-07-24] MEDS: Azithromycin 500mg/250ML NS 500 MG/250 ML BAG IVPB SCH (16:00)
--- NOTE | 2017-07-24 16:25 | CP.PCM.PN ---
Subjective - Date & Time of Evaluation Date of Evaluation: 07/24/17 Time of Evaluation: 07:00 - Subjective Subjective: clinically same Objective - Vital Signs/Intake and Output Vital Signs (last 24 hours): Temp Pulse Resp BP Pulse Ox 97.9 F 80 20 151/85 H 99 07/24/17 07:15 07/24/17 07:15 07/24/17 07:15 07/24/17 07:15 07/24/17 07:15 - Medications Medications: Current Medications Albuterol/Ipratropium (Duoneb 3 Mg/0.5 Mg (3 Ml) Ud) 3 ml INH RQ6 PRN PRN Reason: Shortness of Breath Last Admin: 07/24/17 07:54 Dose: 3 ml Chlordiazepoxide (Librium) 25 mg PO DAILY [facility] PRN Reason: Taper Stop: 07/25/17 11:59 Last Admin: 07/24/17 09:49 Dose: 25 mg Clonidine HCl (Catapres) 0.1 mg PO BID PRN PRN Reason: Systolic Blood Pressure Last Admin: 07/23/17 13:31 Dose: 0.1 mg Dextrose (Dextrose 50% Inj) 0 ml IVP .STAT PRN; Protocol PRN Reason: Hypoglycemia Protocol Dextrose (Glutose 15) 0 gm PO .ONCE PRN; Protocol PRN Reason: Hypoglycemia Protocol Enoxaparin Sodium (Lovenox) 40 mg SC DAILY [facility] Last Admin: 07/24/17 09:48 Dose: 40 mg Famotidine (Pepcid) 20 mg PO BID [facility] Last Admin: 07/24/17 09:49 Dose: 20 mg Folic Acid (Folic Acid) 1 mg PO DAILY [facility] Last Admin: 07/24/17 09:49 Dose: 1 mg Gabapentin (Neurontin) 100 mg PO TID [facility] Last Admin: 07/24/17 13:05 Dose: 100 mg Glucagon (Glucagen Diagnostic Kit) 0 mg IM .STAT PRN; Protocol PRN Reason: Hypoglycemia Protocol Hydrochlorothiazide (Microzide) 12.5 mg PO DAILY [facility] Last Admin: 07/24/17 09:49 Dose: 12.5 mg Ceftriaxone Sodium 1 gm/ (Sodium Chloride) 100 mls @ 200 mls/hr IVPB Q12H [facility] PRN Reason: Protocol Stop: 07/26/17 17:31 Last Admin: 04/15/18 04:30 Dose: 200 mls/hr Azithromycin (Zithromax 500mg In Ns Addvantage) 500 mg in 250 mls @ 167 mls/hr IVPB Q24H [facility] PRN Reason: Protocol Stop: 07/26/17 16:01 Last Admin: 07/23/17 16:17 Dose: 167 mls/hr Insulin Aspart (Novolog) 0 unit SC ACHS [facility] PRN Reason: Protocol Last Admin: 07/24/17 12:26 Dose: 4 unit Lorazepam (Ativan) 1 mg IVP Q4H PRN PRN Reason: Seizure activity Metformin HCl (Glucophage) 850 mg PO DAILY [facility] Last Admin: 07/24/17 09:49 Dose: 850 mg Methylprednisolone (Solu-Medrol) 40 mg IVP Q12 [facility] Last Admin: 07/24/17 09:49 Dose: 40 mg Montelukast Sodium (Singulair) 10 mg PO HS [facility] Last Admin: 07/23/17 21:28 Dose: 10 mg Multivitamins/Minerals (Therapeutic-M Tab) 1 tab PO DAILY [facility] Last Admin: 07/24/17 09:49 Dose: 1 tab Potassium Chloride (K-Dur 20 Meq Er Tab) 20 meq PO DAILY [facility] Last Admin: 07/24/17 09:49 Dose: 20 meq Fluticasone/Salmeterol (Advair Diskus 250/50) 1 puff INH RQ12 [facility] Last Admin: 07/24/17 07:54 Dose: 1 puff Thiamine HCl (Vitamin B1 Tab) 100 mg PO DAILY [facility] Last Admin: 07/24/17 09:49 Dose: 100 mg Trazodone HCl (Desyrel) 50 mg PO HS PRN PRN Reason: Insomnia Last Admin: 07/23/17 21:31 Dose: 50 mg - Labs Labs: 07/23/17 08:00 07/23/17 07:55 - Constitutional Appears: Well - Head Exam Head Exam: ATRAUMATIC, NORMAL INSPECTION, NORMOCEPHALIC - Eye Exam Eye Exam: EOMI, Normal appearance, PERRL Pupil Exam: NORMAL ACCOMODATION, PERRL - ENT Exam ENT Exam: Mucous Membranes Moist, Normal Exam - Neck Exam Neck Exam: Full ROM, Normal Inspection. absent: Lymphadenopathy - Respiratory Exam Respiratory Exam: Decreased Breath Sounds - Cardiovascular Exam Cardiovascular Exam: REGULAR RHYTHM, +S1, +S2 - GI/Abdominal Exam GI & Abdominal Exam: Soft, Diminished Bowel Sounds - Rectal Exam Rectal Exam: Deferred
[2017-07-25] MEDS ORDERED: Loperamide Hydrochloride 1 mg/5 ml Cup PO ONE (01:04)
[2017-07-25] MEDS: Fluticasone-Salmeterol 250-50mcg Diskus INH SCH ×2 (07:15→20:09)
[2017-07-25] MEDS: (Novolog) Insulin Aspart, Recombinant 100 u/ml 10 ml vial SC SCH ×4 (08:30→21:13)
[2017-07-25] MEDS: LIPASE/PROTEASE/AMYLASE 4,200 U ECC PO SCH ×3 (08:42→16:51)
[2017-07-25] MEDS: Potassium Chloride 20 mEq ER Tab PO SCH (09:57)
[2017-07-25] MEDS: Enoxaparin 40 mg Syringe SC SCH (09:58)
[2017-07-25] MEDS: MethylPREDNISolone 40 mg Vial IVP SCH (10:00)
[2017-07-25] MEDS: Multivitamin With Minerals Tab PO SCH (10:06)
[2017-07-25 11:16] LABS: BASO % 0.2 % (0.0-2.0); EOS % 0.1 % (0.0-4.0); HEMOGLOBIN 12.8 g/dL (12.0-18.0); LYMPH # 2.2 K/uL (1.0-4.3); LYMPH % 15.8 % (20.0-40.0); MEAN CELL VOLUME 100.4 fL (80.0-94.0); MEAN CORPUSCULAR HEMOGLOBIN 34.4 pg (27.0-31.0); MEAN CORPUSCULAR HGB CONC 34.2 g/dL (33.0-37.0); MEAN PLATELET VOLUME 7.8 fL (7.2-11.7); MONO # 0.7 K/uL (0.0-0.8); MONO % 5.1 % (0.0-10.0); NEUT % 78.8 % (50.0-75.0); RBC 3.74 Mil/uL (4.40-5.90); RED CELL DISTRIBUTION WIDTH 16.5 % (11.5-14.5)
[2017-07-25 11:33] LABS: BLOOD UREA NITROGEN 16 mg/dL (9-20); CALCIUM 8.8 mg/dl (8.6-10.4); GFR AFRICAN-AMERICAN > 60; GFR NON-AFRICAN AMERICAN > 60
--- NOTE | 2017-07-25 11:43 | CT ---
PROCEDURE: CT Abdomen and Pelvis without intravenous contrast HISTORY: malrotation of left kidney with hydronephrosis COMPARISON: None. TECHNIQUE: Without contrast.. Contrast Dose: 0 Radiation dose: Total exam DLP = Total exam DLP = 969.93 mGy-cm. This CT exam was performed using one or more of the following dose reduction techniques: Automated exposure control, adjustment of the mA and/or kV according to patient size, and/or use of iterative reconstruction technique. FINDINGS: LOWER THORAX: Unremarkable. LIVER: Unremarkable. No gross lesion or ductal dilatation. GALLBLADDER AND BILE DUCTS: Unremarkable. PANCREAS: Unremarkable. No gross lesion or ductal dilatation. SPLEEN: Unremarkable. ADRENALS: Unremarkable. No mass. KIDNEYS AND URETERS: Malrotated left kidney, likely developmental. No renal mass, calculus or hydronephrosis. VASCULATURE: Unremarkable. No aortic aneurysm. BOWEL: Unremarkable. No obstruction. No gross mural thickening. APPENDIX: Unremarkable. Normal appendix. PERITONEUM: Unremarkable. No free fluid. No free air. LYMPH NODES: Unremarkable. No enlarged lymph nodes. BLADDER: Unremarkable. REPRODUCTIVE: Unremarkable prostate BONES: Status post L2 vertebroplasty. OTHER FINDINGS: None. IMPRESSION: Malrotated left kidney. Status post L2 vertebroplasty. Otherwise unremarkable examination.
--- NOTE | 2017-07-25 12:07 | CP.PCM.PN ---
Subjective - Date & Time of Evaluation Date of Evaluation: 07/25/17 Time of Evaluation: 12:03 - Subjective Subjective: [id number] progress note for Dr. Rao pt seen and examined at bedside. Patient is resting comfortably in bed. Patient states that he has had about 10 BMs today all loose and watery. patient denies having any abd pain, N/V, F/C, CP, SOB. Pt tolerating diet. Objective - Vital Signs/Intake and Output Vital Signs (last 24 hours): Temp Pulse Resp BP Pulse Ox 97.9 F 98 H 20 156/91 H 98 07/25/17 07:00 07/25/17 07:00 07/25/17 07:00 07/25/17 07:00 07/25/17 07:00 Intake and Output: 07/25/17 07/25/17 06:59 18:59 Intake Total 350 Balance 350 - Medications Medications: Current Medications Albuterol/Ipratropium (Duoneb 3 Mg/0.5 Mg (3 Ml) Ud) 3 ml INH RQ6 PRN PRN Reason: Shortness of Breath Last Admin: 07/24/17 07:54 Dose: 3 ml Clonidine HCl (Catapres) 0.1 mg PO BID PRN PRN Reason: Systolic Blood Pressure Last Admin: 07/23/17 13:31 Dose: 0.1 mg Dextrose (Dextrose 50% Inj) 0 ml IVP .STAT PRN; Protocol PRN Reason: Hypoglycemia Protocol Dextrose (Glutose 15) 0 gm PO .ONCE PRN; Protocol PRN Reason: Hypoglycemia Protocol Enoxaparin Sodium (Lovenox) 40 mg SC DAILY [facility] Last Admin: 07/25/17 09:58 Dose: 40 mg Famotidine (Pepcid) 20 mg PO BID [facility] Last Admin: 07/25/17 09:57 Dose: 20 mg Folic Acid (Folic Acid) 1 mg PO DAILY [facility] Last Admin: 07/25/17 09:57 Dose: 1 mg Gabapentin (Neurontin) 100 mg PO TID [facility] Last Admin: 07/25/17 09:57 Dose: 100 mg Glucagon (Glucagen Diagnostic Kit) 0 mg IM .STAT PRN; Protocol PRN Reason: Hypoglycemia Protocol Hydrochlorothiazide (Microzide) 12.5 mg PO DAILY [facility] Last Admin: 07/25/17 09:58 Dose: 12.5 mg Ceftriaxone Sodium 1 gm/ (Sodium Chloride) 100 mls @ 200 mls/hr IVPB Q12H [facility] PRN Reason: Protocol Stop: 07/26/17 17:31 Last Admin: 07/25/17 05:11 Dose: 200 mls/hr Azithromycin (Zithromax 500mg In Ns Addvantage) 500 mg in 250 mls @ 167 mls/hr IVPB Q24H [facility] PRN Reason: Protocol Stop: 07/26/17 16:01 Last Admin: 07/24/17 16:00 Dose: 167 mls/hr Insulin Aspart (Novolog) 0 unit SC ACHS [facility] PRN Reason: Protocol Last Admin: 07/25/17 08:30 Dose: 3 unit Lorazepam (Ativan) 1 mg IVP Q4H PRN PRN Reason: Seizure activity Metformin HCl (Glucophage) 850 mg PO DAILY [facility] Last Admin: 07/25/17 09:57 Dose: 850 mg Methylprednisolone (Solu-Medrol) 40 mg IVP Q12 [facility] Last Admin: 07/25/17 10:00 Dose: 40 mg Montelukast Sodium (Singulair) 10 mg PO HS [facility] Last Admin: 07/24/17 21:36 Dose: 10 mg Multivitamins/Minerals (Therapeutic-M Tab) 1 tab PO DAILY [facility] Last Admin: 07/25/17 10:06 Dose: 1 tab Potassium Chloride (K-Dur 20 Meq Er Tab) 20 meq PO DAILY [facility] Last Admin: 07/25/17 09:57 Dose: 20 meq Fluticasone/Salmeterol (Advair Diskus 250/50) 1 puff INH RQ12 [facility] Last Admin: 07/25/17 07:15 Dose: 1 puff Thiamine HCl (Vitamin B1 Tab) 100 mg PO DAILY [facility] Last Admin: 07/25/17 09:57 Dose: 100 mg Trazodone HCl (Desyrel) 50 mg PO HS PRN PRN Reason: Insomnia Last Admin: 07/24/17 21:37 Dose: 50 mg - Labs Labs: 07/25/17 11:05 07/25/17 11:05 - Constitutional Appears: Non-toxic, No Acute Distress - ENT Exam ENT Exam: Mucous Membranes Moist - Respiratory Exam Respiratory Exam: Clear to Ausculation Bilateral. absent: Rales, Rhonchi, Wheezes - Cardiovascular Exam Cardiovascular Exam: REGULAR RHYTHM, +S1, +S2. absent: Gallop, Rubs, Murmur - GI/Abdominal Exam GI & Abdominal Exam: Soft, Normal Bowel Sounds. absent: Distended, Firm, Guarding, Rigid, Tenderness, Organomegaly - Extremities Exam Extremities Exam: absent: Pedal Edema, Tenderness - Neurological Exam Neurological Exam: Alert, Awake, Oriented x3 - Psychiatric Exam Psychiatric exam: Normal Affect, Normal Mood - Skin Skin Exam: Dry, Intact, Normal Color, Warm Assessment and Plan - Assessment and Plan (Free Text) Assessment: Asthma exacerbation Chest xray 07/21: mild venous congestion. punctate nodular density at lateral aspect right midlung zone, nonspecific. heart size within normal limits. tortuous aorta. degenerative changes in spine and shoulders. duonebs q6prn solumedrol 40mg IV QD. Will consider switching pt to PO steroids tomorrow advair 250/50 Q12h singulair 10mg PO HS will cover with rocephin and zithromax for 5 days. patient had recent hospitalization at [facility] 07/06/17. 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 No hydronephrosis or calculus Prophylactic measure pepcid 20mg PO BID Lovenox 40mg SC daily All management as per Dr. Carl Rao
--- NOTE | 2017-07-25 14:15 | PCM.PSYCH ---
Initial Psychiatric Evaluation - Initial Psychiatric Evaluation Type of Admission: Voluntary Legal Status: Capacity Chief Complaint (in patient's own words): Consult for ETOH and Bipolar Disorder History of Present Illness and Precipitating Events: This is a 56 year old male, who is homeless and does not currently work , who came to ED on 07/21/2017 for asthma exacerbation. Patient has a history of alcohol use disorder and Bipolar Disorder. Patient consumes 1 pint of Bacardi; patient has been drinking for over 40 years. Patient attended a detox program 1 year ago; he remained sober for 1 month before relapsing again. Patient has previously been hospitalized at [facility] for Bipolar Disorder and Depression. Patient denied depression, suicidal ideation, visual or auditory hallucinations, or feelings of paranoia. Medical history: Asthma, HTN Psych History: Alcohol Use Disorder, Bipolar Disorder, Depression Family History: Alcohol Use Disorder Current Medications: Active Medications Generic Name Dose Route Start Last Admin Trade Name Freq PRN Reason Stop Dose Admin Albuterol/Ipratropium 3 ml 07/21/17 04:25 07/24/17 07:54 Duoneb 3 Mg/0.5 Mg (3 Ml) Ud INH 3 ml RQ6 PRN Administration Shortness of Breath Clonidine HCl 0.1 mg 07/22/17 15:38 07/23/17 13:31 Catapres PO 0.1 mg BID PRN Administration Systolic Blood Pressure Dextrose 0 ml 07/21/17 13:15 Dextrose 50% Inj IVP .STAT PRN Hypoglycemia Protocol Protocol Dextrose 0 gm 07/21/17 13:15 Glutose 15 PO .ONCE PRN Hypoglycemia Protocol Protocol Enoxaparin Sodium 40 mg 07/21/17 10:00 07/25/17 09:58 Lovenox SC 40 mg DAILY [facility] Administration Famotidine 20 mg 07/21/17 10:00 07/25/17 09:57 Pepcid PO 20 mg BID [facility] Administration Folic Acid 1 mg 07/21/17 10:00 07/25/17 09:57 Folic Acid PO 1 mg DAILY [facility] Administration Gabapentin 100 mg 07/21/17 10:00 07/25/17 09:57 Neurontin PO 100 mg TID [facility] Administration Glucagon 0 mg 07/21/17 13:15 Glucagen Diagnostic Kit IM .STAT PRN Hypoglycemia Protocol Protocol Hydrochlorothiazide 12.5 mg 07/21/17 10:00 04/16/18 09:58 Microzide PO 12.5 mg DAILY [facility] Administration Ceftriaxone Sodium 1 gm/ 100 mls @ 200 mls/hr 07/21/17 17:30 07/25/17 05:11 Sodium Chloride IVPB 07/26/17 17:31 200 mls/hr Q12H [facility] Administration Protocol Azithromycin 500 mg in 250 mls @ 167 mls/hr 07/21/17 16:00 07/24/17 16:00 Zithromax 500mg In Ns Addvantage IVPB 07/26/17 16:01 167 mls/hr Q24H [facility] Administration Protocol Insulin Aspart 0 unit 07/21/17 07:30 07/25/17 12:49 Novolog SC 4 unit ACHS [facility] Administration Protocol Lorazepam 1 mg 07/21/17 07:36 Ativan IVP Q4H PRN Seizure activity Metformin HCl 850 mg 07/21/17 10:00 07/25/17 09:57 Glucophage PO 850 mg DAILY [facility] Administration Methylprednisolone 40 mg 07/26/17 10:00 Solu-Medrol IVP DAILY [facility] Metronidazole 500 mg 07/25/17 14:15 Flagyl PO Q8 [facility] Protocol Montelukast Sodium 10 mg 07/21/17 22:00 07/24/17 21:36 Singulair PO 10 mg HS [facility] Administration Multivitamins/Minerals 1 tab 07/21/17 10:00 07/25/17 10:06 Therapeutic-M Tab PO 1 tab DAILY [facility] Administration Potassium Chloride 20 meq 07/23/17 10:00 07/25/17 09:57 K-Dur 20 Meq Er Tab PO 20 meq DAILY [facility] Administration Fluticasone/Salmeterol 1 puff 07/21/17 08:00 07/25/17 07:15 Advair Diskus 250/50 INH 1 puff RQ12 [facility] Administration Thiamine HCl 100 mg 07/21/17 10:00 07/25/17 09:57 Vitamin B1 Tab PO 100 mg DAILY [facility] Administration Trazodone HCl 50 mg 07/21/17 14:49 07/24/17 21:37 Desyrel PO 50 mg HS PRN Administration Insomnia Past Psychiatric History - Past Psychiatric History Previous Treatment History: Inpatient At [facility]: [facility] Nature of Treatment: Bipolar Disorder and Depression History of ETOH/Drug Use: Alcohol Use Disorder Pertinent Medical Hx (Current Medical&Sleep Prob, Allergies): Allergies Allergy/AdvReac Type Severity Reaction Status Date / Time No Known Allergies Allergy Verified 07/20/17 22:04 Albuterol/Ipratropium [Duoneb 3 mg/0.5 mg (3 ml) UD] 3 ml INH RQ6 PRN neb 04/20 Famotidine [Pepcid] 20 mg PO BID #0 tab 04/20/17 Folic Acid 1 mg PO DAILY tab 04/20/17 Gabapentin [Neurontin] 100 mg PO TID 30 Days #90 cap 04/20/17 Insulin Human Regular [HumuLIN R] 0 units SC ACHS ml 04/20/17 QUEtiapine [SEROquel] 300 mg PO HS 30 Days #30 tab 04/20/17 Thiamine [Vitamin B1 Tab] 100 mg PO DAILY 30 Days #30 tab 04/20/17 metFORMIN [glucOPHAGE] 850 mg PO DAILY #90 tab 04/20/17 traZODone [Desyrel] 100 mg PO HS 30 Days #30 tab 04/20/17 Lipase/Protease/Amylase [Belinda June 3,000 Units Capsule] 1 each PO AC #30 capsule. 06/23/17 Multimineral/Multivitamin [Therapeutic-M Tab] 1 tab PO DAILY tab 07/07/17 hydroCHLOROthiazide [Microzide] 12.5 mg PO DAILY 30 Days #30 cap 07/07/17 Prednisone 50 mg PO DAILY #5 tab 07/12/17 Albuterol HFA [Ventolin HFA 90 mcg/actuation (8 g)] 1 puff IH Q4 PRN #1 inh 01/26 Review of Systems - Review of Systems All systems: reviewed and no additional remarkable complaints except - Psychiatric Psychiatric: absent: Auditory Hallucinations, Depression, Hallucinations, Paranoia, Suicidal Ideation, Visual Hallucinations Mental Status Examination - Personal Presentation Personal Presentation: Looks older than stated age - Affect Affect: Broad - Motor Activity Motor Activity: Calm - Reliability in Providing Information Reliability in Providing Information: Other - Speech Speech: Organized - Mood Mood: Neutral - Formal Thought Process Formal Thought Process: No Impairment - Obsessions/Compulsions Obsessions: No Compulsions: No - Cognitive Functions Orientation: Person, Place, Situation, Time Sensorium: Alert Attention/Concentration: Attentive Abstract Thinking: [place] Estimate of Intelligence: Below average - Limitations Limitations: Living alone DSM 5 DX - DSM 5 DSM 5 Diagnosis: Alcohol Use Disorder, severe - Recommended/Plan of Treatment Treatment Recommendations and Plan of Treatment: Continue and complete detox Support and psychoed provided Patient was recommended to attend [facility] for rehab. 33 min
[2017-07-25] MEDS: Azithromycin 500mg/250ML NS 500 MG/250 ML BAG IVPB SCH (17:00)
--- NOTE | 2017-07-25 18:28 | CP.PCM.PN ---
Subjective - Date & Time of Evaluation Date of Evaluation: 07/25/17 Time of Evaluation: 07:00 - Subjective Subjective: clinically same Objective - Vital Signs/Intake and Output Vital Signs (last 24 hours): Temp Pulse Resp BP Pulse Ox 97.7 F 102 H 20 150/82 98 07/25/17 15:00 07/25/17 15:00 07/25/17 15:00 07/25/17 15:00 07/25/17 15:00 Intake and Output: 07/25/17 07/25/17 06:59 18:59 Intake Total 350 480 Balance 350 480 - Medications Medications: Current Medications Albuterol/Ipratropium (Duoneb 3 Mg/0.5 Mg (3 Ml) Ud) 3 ml INH RQ6 PRN PRN Reason: Shortness of Breath Last Admin: 07/24/17 07:54 Dose: 3 ml Clonidine HCl (Catapres) 0.1 mg PO BID PRN PRN Reason: Systolic Blood Pressure Last Admin: 07/23/17 13:31 Dose: 0.1 mg Dextrose (Dextrose 50% Inj) 0 ml IVP .STAT PRN; Protocol PRN Reason: Hypoglycemia Protocol Dextrose (Glutose 15) 0 gm PO .ONCE PRN; Protocol PRN Reason: Hypoglycemia Protocol Enoxaparin Sodium (Lovenox) 40 mg SC DAILY [facility] Last Admin: 07/25/17 09:58 Dose: 40 mg Famotidine (Pepcid) 20 mg PO BID [facility] Last Admin: 07/25/17 17:12 Dose: 20 mg Folic Acid (Folic Acid) 1 mg PO DAILY [facility] Last Admin: 07/25/17 09:57 Dose: 1 mg Gabapentin (Neurontin) 100 mg PO TID [facility] Last Admin: 07/25/17 17:12 Dose: 100 mg Glucagon (Glucagen Diagnostic Kit) 0 mg IM .STAT PRN; Protocol PRN Reason: Hypoglycemia Protocol Hydrochlorothiazide (Microzide) 12.5 mg PO DAILY [facility] Last Admin: 07/25/17 09:58 Dose: 12.5 mg Ceftriaxone Sodium 1 gm/ (Sodium Chloride) 100 mls @ 200 mls/hr IVPB Q12H [facility] PRN Reason: Protocol Stop: 07/26/17 17:31 Last Admin: 07/25/17 05:11 Dose: 200 mls/hr Azithromycin (Zithromax 500mg In Ns Addvantage) 500 mg in 250 mls @ 167 mls/hr IVPB Q24H [facility] PRN Reason: Protocol Stop: 07/26/17 16:01 Last Admin: 07/25/17 17:00 Dose: 167 mls/hr Insulin Aspart (Novolog) 0 unit SC ACHS [facility] PRN Reason: Protocol Last Admin: 07/25/17 16:55 Dose: 4 unit Lorazepam (Ativan) 1 mg IVP Q4H PRN PRN Reason: Seizure activity Metformin HCl (Glucophage) 850 mg PO DAILY [facility] Last Admin: 07/25/17 09:57 Dose: 850 mg Methylprednisolone (Solu-Medrol) 40 mg IVP DAILY [facility] Metronidazole (Flagyl) 500 mg PO Q8 [facility] PRN Reason: Protocol Last Admin: 07/25/17 14:51 Dose: 500 mg Montelukast Sodium (Singulair) 10 mg PO HS [facility] Last Admin: 07/24/17 21:36 Dose: 10 mg Multivitamins/Minerals (Therapeutic-M Tab) 1 tab PO DAILY [facility] Last Admin: 07/25/17 10:06 Dose: 1 tab Potassium Chloride (K-Dur 20 Meq Er Tab) 20 meq PO DAILY [facility] Last Admin: 07/25/17 09:57 Dose: 20 meq Fluticasone/Salmeterol (Advair Diskus 250/50) 1 puff INH RQ12 [facility] Last Admin: 07/25/17 07:15 Dose: 1 puff Thiamine HCl (Vitamin B1 Tab) 100 mg PO DAILY [facility] Last Admin: 07/25/17 09:57 Dose: 100 mg Trazodone HCl (Desyrel) 50 mg PO HS PRN PRN Reason: Insomnia Last Admin: 07/24/17 21:37 Dose: 50 mg - Labs Labs: 07/25/17 11:05 07/25/17 11:05 - Constitutional Appears: Well - Head Exam Head Exam: ATRAUMATIC, NORMAL INSPECTION, NORMOCEPHALIC - Eye Exam Eye Exam: EOMI, Normal appearance, PERRL Pupil Exam: NORMAL ACCOMODATION, PERRL - ENT Exam ENT Exam: Mucous Membranes Moist, Normal Exam - Neck Exam Neck Exam: Full ROM, Normal Inspection. absent: Lymphadenopathy - Respiratory Exam Respiratory Exam: Decreased Breath Sounds - Cardiovascular Exam Cardiovascular Exam: REGULAR RHYTHM, +S1, +S2 - GI/Abdominal Exam GI & Abdominal Exam: Soft, Diminished Bowel Sounds - Rectal Exam Rectal Exam: Deferred
--- NOTE | 2017-07-26 07:17 | CP.PCM.PN ---
<Mary Crews - Last Filed: 07/26/17 15:32> Subjective - Date & Time of Evaluation Date of Evaluation: 07/26/17 Time of Evaluation: 08:00 - Subjective Subjective: Pgy2 progress note for Dr. Rao pt seen and examined at bedside. Patient is resting comfortably in bed. Patient states that he has had about 6 BMs today all loose and watery. patient denies having any abd pain, N/V, F/C, CP, SOB. Pt tolerating diet. Patient does not want to be discharged as he says he has no where to stay. Objective - Vital Signs/Intake and Output Vital Signs (last 24 hours): Temp Pulse Resp BP Pulse Ox 98 F 96 H 20 127/82 99 07/26/17 00:00 07/26/17 00:00 07/26/17 00:00 07/26/17 00:00 07/26/17 00:00 Intake and Output: 07/26/17 07/26/17 06:59 18:59 Intake Total 1330 Balance 1330 - Medications Medications: Current Medications Clonidine HCl (Catapres) 0.1 mg PO BID PRN PRN Reason: Systolic Blood Pressure Last Admin: 07/23/17 13:31 Dose: 0.1 mg Dextrose (Dextrose 50% Inj) 0 ml IVP .STAT PRN; Protocol PRN Reason: Hypoglycemia Protocol Dextrose (Glutose 15) 0 gm PO .ONCE PRN; Protocol PRN Reason: Hypoglycemia Protocol Enoxaparin Sodium (Lovenox) 40 mg SC DAILY [facility] Last Admin: 07/25/17 09:58 Dose: 40 mg Famotidine (Pepcid) 20 mg PO BID [facility] Last Admin: 07/25/17 17:12 Dose: 20 mg Folic Acid (Folic Acid) 1 mg PO DAILY [facility] Last Admin: 07/25/17 09:57 Dose: 1 mg Gabapentin (Neurontin) 100 mg PO TID [facility] Last Admin: 07/25/17 17:12 Dose: 100 mg Glucagon (Glucagen Diagnostic Kit) 0 mg IM .STAT PRN; Protocol PRN Reason: Hypoglycemia Protocol Hydrochlorothiazide (Microzide) 12.5 mg PO DAILY [facility] Last Admin: 07/25/17 09:58 Dose: 12.5 mg Ceftriaxone Sodium 1 gm/ (Sodium Chloride) 100 mls @ 200 mls/hr IVPB Q12H [facility] PRN Reason: Protocol Stop: 07/26/17 17:31 Last Admin: 07/26/17 05:45 Dose: 200 mls/hr Azithromycin (Zithromax 500mg In Ns Addvantage) 500 mg in 250 mls @ 167 mls/hr IVPB Q24H [facility] PRN Reason: Protocol Stop: 07/26/17 16:01 Last Admin: 07/25/17 17:00 Dose: 167 mls/hr Insulin Aspart (Novolog) 0 unit SC ACHS [facility] PRN Reason: Protocol Last Admin: 07/25/17 21:13 Dose: Not Given Lorazepam (Ativan) 1 mg IVP Q4H PRN PRN Reason: Seizure activity Last Admin: 07/26/17 02:10 Dose: 1 mg Metformin HCl (Glucophage) 850 mg PO DAILY [facility] Last Admin: 07/25/17 09:57 Dose: 850 mg Methylprednisolone (Solu-Medrol) 40 mg IVP DAILY [facility] Metronidazole (Flagyl) 500 mg PO Q8 [facility] PRN Reason: Protocol Last Admin: 07/26/17 05:44 Dose: 500 mg Montelukast Sodium (Singulair) 10 mg PO HS [facility] Last Admin: 07/25/17 21:13 Dose: 10 mg Multivitamins/Minerals (Therapeutic-M Tab) 1 tab PO DAILY [facility] Last Admin: 07/25/17 10:06 Dose: 1 tab Potassium Chloride (K-Dur 20 Meq Er Tab) 20 meq PO DAILY [facility] Last Admin: 07/25/17 09:57 Dose: 20 meq Fluticasone/Salmeterol (Advair Diskus 250/50) 1 puff INH RQ12 [facility] Last Admin: 07/25/17 20:09 Dose: 1 puff Thiamine HCl (Vitamin B1 Tab) 100 mg PO DAILY [facility] Last Admin: 07/25/17 09:57 Dose: 100 mg Trazodone HCl (Desyrel) 50 mg PO HS PRN PRN Reason: Insomnia Last Admin: 07/25/17 21:22 Dose: 50 mg - Labs Labs: 07/25/17 11:05 07/25/17 11:05 - Constitutional Appears: Non-toxic, No Acute Distress - Head Exam Head Exam: NORMAL INSPECTION - Eye Exam Eye Exam: Normal appearance Pupil Exam: NORMAL ACCOMODATION - ENT Exam ENT Exam: Mucous Membranes Moist - Respiratory Exam Respiratory Exam: Clear to Ausculation Bilateral, NORMAL BREATHING PATTERN. absent: Respiratory Distress - Cardiovascular Exam Cardiovascular Exam: REGULAR RHYTHM, +S1, +S2 - GI/Abdominal Exam GI & Abdominal Exam: Soft, Normal Bowel Sounds. absent: Distended, Firm, Guarding, Tenderness - Extremities Exam Extremities Exam: Normal Inspection - Back Exam Back Exam: NORMAL INSPECTION - Neurological Exam Neurological Exam: Alert, Awake, CN II-XII Intact, Normal Gait, Oriented x3 - Psychiatric Exam Psychiatric exam: Normal Affect, Normal Mood - Skin Skin Exam: Intact, Normal Color Assessment and Plan - Assessment and Plan (Free Text) Assessment: Asthma exacerbation Chest xray 07/21: mild venous congestion. punctate nodular density at lateral aspect right midlung zone, nonspecific. heart size within normal limits. tortuous aorta. degenerative changes in spine and shoulders. duonebs q6prn solumedrol 40mg IV QD. Will consider switching pt to PO steroids tomorrow advair 250/50 Q12h singulair 10mg PO HS will cover with rocephin and zithromax for 5 days. patient had recent hospitalization at [facility] 07/06/17. 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 No hydronephrosis or calculus Prophylactic measure pepcid 20mg PO BID Lovenox 40mg SC daily All management as per Dr. Carl Rao <Aguila Rao - Last Filed: 07/26/17 23:01> Objective - Vital Signs/Intake and Output Vital Signs (last 24 hours): Temp Pulse Resp BP Pulse Ox 97.8 F 101 H 20 156/93 H 97 07/26/17 15:00 07/26/17 15:00 07/26/17 15:00 07/26/17 15:00 07/26/17 15:00 - Medications Medications: Current Medications Clonidine HCl (Catapres) 0.1 mg PO BID PRN PRN Reason: Systolic Blood Pressure Last Admin: 07/23/17 13:31 Dose: 0.1 mg Dextrose (Dextrose 50% Inj) 0 ml IVP .STAT PRN; Protocol PRN Reason: Hypoglycemia Protocol Dextrose (Glutose 15) 0 gm PO .ONCE PRN; Protocol PRN Reason: Hypoglycemia Protocol Enoxaparin Sodium (Lovenox) 40 mg SC DAILY [facility] Last Admin: 07/26/17 09:16 Dose: 40 mg Famotidine (Pepcid) 20 mg PO BID [facility] Last Admin: 07/26/17 18:02 Dose: 20 mg Folic Acid (Folic Acid) 1 mg PO DAILY [facility] Last Admin: 07/26/17 09:14 Dose: 1 mg Gabapentin (Neurontin) 100 mg PO TID [facility] Last Admin: 07/26/17 18:03 Dose: 100 mg Glucagon (Glucagen Diagnostic Kit) 0 mg IM .STAT PRN; Protocol PRN Reason: Hypoglycemia Protocol Hydrochlorothiazide (Microzide) 12.5 mg PO DAILY [facility] Last Admin: 07/26/17 09:14 Dose: 12.5 mg Insulin Aspart (Novolog) 0 unit SC ACHS [facility] PRN Reason: Protocol Last Admin: 07/26/17 21:38 Dose: Not Given Lorazepam (Ativan) 1 mg IVP Q4H PRN PRN Reason: Seizure activity Last Admin: 07/26/17 02:10 Dose: 1 mg Metformin HCl (Glucophage) 850 mg PO DAILY [facility] Last Admin: 07/26/17 09:19 Dose: 850 mg Methylprednisolone (Solu-Medrol) 40 mg IVP DAILY [facility] Last Admin: 07/26/17 10:00 Dose: 40 mg Metronidazole (Flagyl) 500 mg PO Q8 [facility] PRN Reason: Protocol Last Admin: 07/26/17 21:36 Dose: 500 mg Montelukast Sodium (Singulair) 10 mg PO HS [facility] Last Admin: 07/26/17 21:36 Dose: 10 mg Multivitamins/Minerals (Therapeutic-M Tab) 1 tab PO DAILY [facility] Last Admin: 07/26/17 09:14 Dose: 1 tab Potassium Chloride (K-Dur 20 Meq Er Tab) 20 meq PO DAILY [facility] Last Admin: 07/26/17 09:14 Dose: 20 meq Fluticasone/Salmeterol (Advair Diskus 250/50) 1 puff INH RQ12 [facility] Last Admin: 07/26/17 21:24 Dose: 1 puff Thiamine HCl (Vitamin B1 Tab) 100 mg PO DAILY [facility] Last Admin: 07/26/17 09:14 Dose: 100 mg Trazodone HCl (Desyrel) 50 mg PO HS PRN PRN Reason: Insomnia Last Admin: 07/26/17 21:36 Dose: 50 mg - Labs Labs: 07/26/17 07:13 07/26/17 07:13 Assessment and Plan (1) Asthma exacerbation Status: Acute (2) Alcohol abuse with intoxication Status: Chronic (3) Abdominal discomfort Status: Acute (4) Abdominal pain Status: Acute (5) Abdominal pain Status: Acute (6) Abrasion Status: Acute (7) Acute hypokalemia Status: Acute (8) Acute pancreatitis Status: Acute (9) Alcohol abuse with alcohol-induced disorder Status: Acute (10) Alcohol abuse with alcohol-induced mood disorder Status: Acute (11) Alcohol ingestion Status: Acute (12) Alcohol intoxication Status: Acute (13) Alcohol intoxication Status: Acute (14) Alcohol use Status: Acute (15) Alcohol withdrawal Status: Acute (16) Alcoholic gastritis Status: Acute (17) Asthma Status: Acute (18) Back disorder Status: Acute (19) Back pain Status: Acute (20) Back strain Status: Acute (21) Bronchitis Status: Acute (22) Burning sensation of feet Status: Acute (23) COPD exacerbation Status: Acute (24) Chest pain Status: Acute (25) Chest wall contusion Status: Acute (26) Chronic back pain Status: Acute (27) Chronic back pain Status: Acute (28) Chronic cough Status: Acute (29) Clavicle fracture, shaft Status: Acute (30) Colitis Status: Acute (31) Colitis, acute Status: Acute (32) Corneal abrasion, left Status: Acute (33) Cough Status: Acute (34) DVT prophylaxis Status: Acute (35) Depression Status: Acute (36) Depression Status: Acute (37) Depression screen Status: Acute (38) Diverticula of colon Status: Acute (39) Dyspnea Status: Acute (40) Elevated liver enzymes Status: Acute (41) Elevated transaminase level Status: Acute (42) Eye injury Status: Acute (43) Fatty liver Status: Acute (44) Finger fracture Status: Acute (45) Gastritis Status: Acute (46) Gastroenteritis Status: Acute (47) Hand fracture Status: Acute (48) Hand pain Status: Acute (49) Head injury Status: Acute (50) Hepatitis Status: Acute (51) Hypertriglyceridemia Status: Acute (52) Hypokalemia Status: Acute (53) Intoxication Status: Acute (54) Low back pain Status: Acute (55) Lumbar compression fracture Status: Acute (56) Malingering Status: Acute (57) Medication refill Status: Acute (58) Pancreatitis, alcoholic, acute Status: Acute (59) Pharyngitis Status: Acute (60) Proximal phalanx fracture of finger Status: Acute (61) Pulmonary nodule Status: Acute (62) Rash and nonspecific skin eruption Status: Acute (63) Rib contusion Status: Acute (64) Schizo affective schizophrenia Status: Acute (65) Schizoaffective disorder Status: Acute (66) Schizophrenia Status: Acute (67) Shoulder injury Status: Acute (68) Substance abuse Status: Acute (69) Testicle pain Status: Acute (70) URI (upper respiratory infection) Status: Acute (71) Urticaria Status: Acute (72) Viral syndrome Status: Acute (73) Weakness Status: Acute (74) Alcohol abuse Status: Chronic (75) Alcohol dependence Status: Chronic (76) Alcohol use disorder Status: Chronic (77) Bipolar 1 disorder, depressed Status: Chronic (78) COPD (chronic obstructive pulmonary disease) Status: Chronic (79) Depression Status: Chronic (80) Depression with suicidal ideation Status: Chronic (81) Diarrhea Status: Chronic (82) HTN (hypertension) Status: Chronic (83) HTN (hypertension) Status: Chronic (84) Hyperlipidemia Status: Chronic (85) Psychosis Status: Chronic (86) Tobacco abuse Status: Chronic (87) Chest pain Status: Resolved (88) Chest pain Status: Resolved (89) Gastritis Status: Resolved (90) Hypokalemia Status: Resolved (91) Hypomagnesemia Status: Resolved (92) Pancreatitis Status: Resolved (93) Transaminitis Status: Resolved Attending/Attestation - Attestation I have personally seen and examined this patient.: Yes I have fully participated in the care of the patient.: Yes I have reviewed all pertinent clinical information, including history, physical exam and plan: Yes Notes (Text): 07/26/17 23:01 case ciaran dn d/w staff andconcur with edy
[2017-07-26 07:22] LABS: BASO % 0.3 % (0.0-2.0); EOS % 0.2 % (0.0-4.0); HEMOGLOBIN 13.5 g/dL (12.0-18.0); LYMPH # 2.4 K/uL (1.0-4.3); LYMPH % 16.2 % (20.0-40.0); MEAN CELL VOLUME 99.1 fL (80.0-94.0); MEAN CORPUSCULAR HEMOGLOBIN 34.3 pg (27.0-31.0); MEAN CORPUSCULAR HGB CONC 34.6 g/dL (33.0-37.0); MEAN PLATELET VOLUME 7.8 fL (7.2-11.7); MONO # 0.9 K/uL (0.0-0.8); MONO % 5.9 % (0.0-10.0); NEUT # 11.3 K/uL (1.8-7.0); NEUT % 77.4 % (50.0-75.0); NRBC % 0.1 % (0.0-2.0); RBC 3.94 Mil/uL (4.40-5.90); RED CELL DISTRIBUTION WIDTH 15.9 % (11.5-14.5); WHITE BLOOD COUNT 14.6 K/uL (4.8-10.8)
[2017-07-26] MEDS: (Novolog) Insulin Aspart, Recombinant 100 u/ml 10 ml vial SC SCH ×4 (07:30→21:38)
[2017-07-26] MEDS: LIPASE/PROTEASE/AMYLASE 4,200 U ECC PO SCH ×3 (07:30→16:40)
[2017-07-26] MEDS: Fluticasone-Salmeterol 250-50mcg Diskus INH SCH ×3 (08:00→21:24)
[2017-07-26 08:18] LABS: ALB/GLOB RATIO 1.4 (1.0-2.1); ALBUMIN 4.2 g/dL (3.5-5.0); ALT/SGPT 62 U/L (21-72); AST/SGOT 45 U/L (17-59); BLOOD UREA NITROGEN 20 mg/dL (9-20); CALCIUM 9.2 mg/dl (8.6-10.4); GFR AFRICAN-AMERICAN > 60; GFR NON-AFRICAN AMERICAN > 60
[2017-07-26] MEDS: Multivitamin With Minerals Tab PO SCH (09:14)
[2017-07-26] MEDS: Potassium Chloride 20 mEq ER Tab PO SCH (09:14)
[2017-07-26] MEDS: Enoxaparin 40 mg Syringe SC SCH (09:16)
[2017-07-26] MEDS ORDERED: MethylPREDNISolone 40 mg Vial IVP SCH (10:00)
[2017-07-26] MEDS: Azithromycin 500mg/250ML NS 500 MG/250 ML BAG IVPB SCH (16:00)
--- NOTE | 2017-07-26 16:58 | CP.PCM.PN ---
Subjective - Date & Time of Evaluation Date of Evaluation: 07/26/17 Time of Evaluation: 07:00 - Subjective Subjective: clinically same Objective - Vital Signs/Intake and Output Vital Signs (last 24 hours): Temp Pulse Resp BP Pulse Ox 97.8 F 101 H 20 156/93 H 97 07/26/17 15:00 07/26/17 15:00 07/26/17 15:00 07/26/17 15:00 07/26/17 15:00 Intake and Output: 07/26/17 07/26/17 06:59 18:59 Intake Total 1330 Balance 1330 - Medications Medications: Current Medications Clonidine HCl (Catapres) 0.1 mg PO BID PRN PRN Reason: Systolic Blood Pressure Last Admin: 07/23/17 13:31 Dose: 0.1 mg Dextrose (Dextrose 50% Inj) 0 ml IVP .STAT PRN; Protocol PRN Reason: Hypoglycemia Protocol Dextrose (Glutose 15) 0 gm PO .ONCE PRN; Protocol PRN Reason: Hypoglycemia Protocol Enoxaparin Sodium (Lovenox) 40 mg SC DAILY [facility] Last Admin: 07/26/17 09:16 Dose: 40 mg Famotidine (Pepcid) 20 mg PO BID [facility] Last Admin: 07/26/17 09:17 Dose: 20 mg Folic Acid (Folic Acid) 1 mg PO DAILY [facility] Last Admin: 07/26/17 09:14 Dose: 1 mg Gabapentin (Neurontin) 100 mg PO TID [facility] Last Admin: 07/26/17 13:41 Dose: 100 mg Glucagon (Glucagen Diagnostic Kit) 0 mg IM .STAT PRN; Protocol PRN Reason: Hypoglycemia Protocol Hydrochlorothiazide (Microzide) 12.5 mg PO DAILY [facility] Last Admin: 07/26/17 09:14 Dose: 12.5 mg Ceftriaxone Sodium 1 gm/ (Sodium Chloride) 100 mls @ 200 mls/hr IVPB Q12H [facility] PRN Reason: Protocol Stop: 07/26/17 17:31 Last Admin: 07/26/17 05:45 Dose: 200 mls/hr Insulin Aspart (Novolog) 0 unit SC ACHS [facility] PRN Reason: Protocol Last Admin: 07/26/17 11:30 Dose: 3 unit Lorazepam (Ativan) 1 mg IVP Q4H PRN PRN Reason: Seizure activity Last Admin: 07/26/17 02:10 Dose: 1 mg Metformin HCl (Glucophage) 850 mg PO DAILY [facility] Last Admin: 07/26/17 09:19 Dose: 850 mg Methylprednisolone (Solu-Medrol) 40 mg IVP DAILY [facility] Last Admin: 07/26/17 10:00 Dose: 40 mg Metronidazole (Flagyl) 500 mg PO Q8 [facility] PRN Reason: Protocol Last Admin: 07/26/17 13:38 Dose: 500 mg Montelukast Sodium (Singulair) 10 mg PO HS [facility] Last Admin: 07/25/17 21:13 Dose: 10 mg Multivitamins/Minerals (Therapeutic-M Tab) 1 tab PO DAILY [facility] Last Admin: 07/26/17 09:14 Dose: 1 tab Potassium Chloride (K-Dur 20 Meq Er Tab) 20 meq PO DAILY [facility] Last Admin: 07/26/17 09:14 Dose: 20 meq Fluticasone/Salmeterol (Advair Diskus 250/50) 1 puff INH RQ12 [facility] Last Admin: 07/26/17 08:00 Dose: 1 puff Thiamine HCl (Vitamin B1 Tab) 100 mg PO DAILY [facility] Last Admin: 07/26/17 09:14 Dose: 100 mg Trazodone HCl (Desyrel) 50 mg PO HS PRN PRN Reason: Insomnia Last Admin: 07/25/17 21:22 Dose: 50 mg - Labs Labs: 07/26/17 07:13 07/26/17 07:13 - Constitutional Appears: Well - Head Exam Head Exam: ATRAUMATIC, NORMAL INSPECTION, NORMOCEPHALIC - Eye Exam Eye Exam: EOMI, Normal appearance, PERRL Pupil Exam: NORMAL ACCOMODATION, PERRL - ENT Exam ENT Exam: Mucous Membranes Moist, Normal Exam - Neck Exam Neck Exam: Full ROM, Normal Inspection. absent: Lymphadenopathy - Respiratory Exam Respiratory Exam: Decreased Breath Sounds - Cardiovascular Exam Cardiovascular Exam: REGULAR RHYTHM, +S1, +S2 - GI/Abdominal Exam GI & Abdominal Exam: Soft, Diminished Bowel Sounds - Rectal Exam Rectal Exam: Deferred Assessment and Plan (1) Asthma exacerbation Status: Acute (2) Alcohol abuse with intoxication Status: Chronic (3) Abdominal discomfort Status: Acute (4) Abdominal pain Status: Acute (5) Abdominal pain Status: Acute (6) Abrasion Status: Acute (7) Acute hypokalemia Status: Acute (8) Acute pancreatitis Status: Acute (9) Alcohol abuse with alcohol-induced disorder Status: Acute (10) Alcohol abuse with alcohol-induced mood disorder Status: Acute (11) Alcohol ingestion Status: Acute (12) Alcohol intoxication Status: Acute (13) Alcohol intoxication Status: Acute (14) Alcohol use Status: Acute (15) Alcohol withdrawal Status: Acute (16) Alcoholic gastritis Status: Acute (17) Asthma Status: Acute (18) Back disorder Status: Acute (19) Back pain Status: Acute (20) Back strain Status: Acute (21) Bronchitis Status: Acute (22) Burning sensation of feet Status: Acute (23) COPD exacerbation Status: Acute (24) Chest pain Status: Acute (25) Chest wall contusion Status: Acute (26) Chronic back pain Status: Acute (27) Chronic back pain Status: Acute (28) Chronic cough Status: Acute (29) Clavicle fracture, shaft Status: Acute (30) Colitis Status: Acute (31) Colitis, acute Status: Acute (32) Corneal abrasion, left Status: Acute (33) Cough Status: Acute (34) DVT prophylaxis Status: Acute (35) Depression Status: Acute (36) Depression Status: Acute (37) Depression screen Status: Acute (38) Diverticula of colon Status: Acute (39) Dyspnea Status: Acute (40) Elevated liver enzymes Status: Acute (41) Elevated transaminase level Status: Acute (42) Eye injury Status: Acute (43) Fatty liver Status: Acute (44) Finger fracture Status: Acute (45) Gastritis Status: Acute (46) Gastroenteritis Status: Acute (47) Hand fracture Status: Acute (48) Hand pain Status: Acute (49) Head injury Status: Acute (50) Hepatitis Status: Acute (51) Hypertriglyceridemia Status: Acute (52) Hypokalemia Status: Acute (53) Intoxication Status: Acute (54) Low back pain Status: Acute (55) Lumbar compression fracture Status: Acute (56) Malingering Status: Acute (57) Medication refill Status: Acute (58) Pancreatitis, alcoholic, acute Status: Acute (59) Pharyngitis Status: Acute (60) Proximal phalanx fracture of finger Status: Acute (61) Pulmonary nodule Status: Acute (62) Rash and nonspecific skin eruption Status: Acute (63) Rib contusion Status: Acute (64) Schizo affective schizophrenia Status: Acute (65) Schizoaffective disorder Status: Acute (66) Schizophrenia Status: Acute (67) Shoulder injury Status: Acute (68) Substance abuse Status: Acute (69) Testicle pain Status: Acute (70) URI (upper respiratory infection) Status: Acute (71) Urticaria Status: Acute (72) Viral syndrome Status: Acute (73) Weakness Status: Acute (74) Alcohol abuse Status: Chronic (75) Alcohol dependence Status: Chronic (76) Alcohol use disorder Status: Chronic (77) Bipolar 1 disorder, depressed Status: Chronic (78) COPD (chronic obstructive pulmonary disease) Status: Chronic (79) Depression Status: Chronic (80) Depression with suicidal ideation Status: Chronic (81) Diarrhea Status: Chronic (82) HTN (hypertension) Status: Chronic (83) HTN (hypertension) Status: Chronic (84) Hyperlipidemia Status: Chronic (85) Psychosis Status: Chronic (86) Tobacco abuse Status: Chronic (87) Chest pain Status: Resolved (88) Chest pain Status: Resolved (89) Gastritis Status: Resolved (90) Hypokalemia Status: Resolved (91) Hypomagnesemia Status: Resolved (92) Pancreatitis Status: Resolved (93) Transaminitis Status: Resolved - Assessment and Plan (Free Text) Plan: Asthma exacerbation Chest xray 07/21: mild venous congestion. punctate nodular density at lateral aspect right midlung zone, nonspecific. heart size within normal limits. tortuous aorta. degenerative changes in spine and shoulders. duonebs q6prn solumedrol 40mg IV QD. Will consider switching pt to PO steroids tomorrow advair 250/50 Q12h singulair 10mg PO HS will cover with rocephin and zithromax for 5 days. patient had recent hospitalization at [facility] 07/06/17. 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 No hydronephrosis or calculus Prophylactic measure pepcid 20mg PO BID Lovenox 40mg SC daily
[2017-07-26] MEDS ORDERED: Albuterol-Ipratrop 3 mg / 0.5 (3 ml) UD INH STA (21:17)
[2017-07-27] MEDS: Fluticasone-Salmeterol 250-50mcg Diskus INH SCH (07:15)
[2017-07-27 07:37] LABS: BASO % 0.1 % (0.0-2.0); EOS % 0.3 % (0.0-4.0); HEMOGLOBIN 13.7 g/dL (12.0-18.0); LYMPH # 1.8 K/uL (1.0-4.3); LYMPH % 16.2 % (20.0-40.0); MEAN CELL VOLUME 99.8 fL (80.0-94.0); MEAN CORPUSCULAR HEMOGLOBIN 34.9 pg (27.0-31.0); MEAN PLATELET VOLUME 7.8 fL (7.2-11.7); MONO # 0.9 K/uL (0.0-0.8); NEUT # 8.3 K/uL (1.8-7.0); NEUT % 75.4 % (50.0-75.0); RBC 3.92 Mil/uL (4.40-5.90); RED CELL DISTRIBUTION WIDTH 16.2 % (11.5-14.5)
[2017-07-27 07:49] VITALS: BP 133/81; PULSE 90; TEMP 98.5; O2SAT 97
[2017-07-27 08:03] LABS: ALB/GLOB RATIO 1.3 (1.0-2.1); ALBUMIN 4.1 g/dL (3.5-5.0); ALT/SGPT 92 U/L (21-72); AST/SGOT 52 U/L (17-59); BLOOD UREA NITROGEN 24 mg/dL (9-20); CALCIUM 9.4 mg/dl (8.6-10.4); GFR AFRICAN-AMERICAN > 60; GFR NON-AFRICAN AMERICAN > 60
[2017-07-27] MEDS: LIPASE/PROTEASE/AMYLASE 4,200 U ECC PO SCH ×2 (08:05→12:04)
[2017-07-27] MEDS: (Novolog) Insulin Aspart, Recombinant 100 u/ml 10 ml vial SC SCH ×2 (08:05→12:05)
[2017-07-27] MEDS: Potassium Chloride 20 mEq ER Tab PO SCH (09:56)
[2017-07-27] MEDS: Multivitamin With Minerals Tab PO SCH (09:56)
[2017-07-27] MEDS: Enoxaparin 40 mg Syringe SC SCH (09:57)
--- NOTE | 2017-07-27 11:36 | CP.PCM.PN ---
Subjective - Date & Time of Evaluation Date of Evaluation: 07/27/17 Time of Evaluation: 11:33 - Subjective Subjective: PGY [address] Rao Pt is seen and examined at bedside. No acute events overnight. Pt states his diarrhea has improved. Pt is tolerating diet. Denies having any abd pain, N/V , F/C, CP, SOB, LE swelling, tremors, agitation or hallucinations. Pt is seen walking around the hallway. Objective - Vital Signs/Intake and Output Vital Signs (last 24 hours): Temp Pulse Resp BP Pulse Ox 98.5 F 90 20 133/81 97 07/27/17 07:46 07/27/17 07:46 07/27/17 07:46 07/27/17 07:46 07/27/17 07:46 Intake and Output: 07/27/17 07/27/17 06:59 18:59 Intake Total 600 Balance 600 - Medications Medications: Current Medications Clonidine HCl (Catapres) 0.1 mg PO BID PRN PRN Reason: Systolic Blood Pressure Last Admin: 07/23/17 13:31 Dose: 0.1 mg Dextrose (Dextrose 50% Inj) 0 ml IVP .STAT PRN; Protocol PRN Reason: Hypoglycemia Protocol Dextrose (Glutose 15) 0 gm PO .ONCE PRN; Protocol PRN Reason: Hypoglycemia Protocol Enoxaparin Sodium (Lovenox) 40 mg SC DAILY [facility] Last Admin: 07/27/17 09:57 Dose: 40 mg Famotidine (Pepcid) 20 mg PO BID [facility] Last Admin: 07/27/17 09:56 Dose: 20 mg Folic Acid (Folic Acid) 1 mg PO DAILY [facility] Last Admin: 07/27/17 09:56 Dose: 1 mg Gabapentin (Neurontin) 100 mg PO TID [facility] Last Admin: 07/27/17 09:56 Dose: 100 mg Glucagon (Glucagen Diagnostic Kit) 0 mg IM .STAT PRN; Protocol PRN Reason: Hypoglycemia Protocol Hydrochlorothiazide (Microzide) 12.5 mg PO DAILY [facility] Last Admin: 07/27/17 09:56 Dose: 12.5 mg Insulin Aspart (Novolog) 0 unit SC ACHS [facility] PRN Reason: Protocol Last Admin: 07/27/17 08:05 Dose: 2 unit Lorazepam (Ativan) 1 mg IVP Q4H PRN PRN Reason: Seizure activity Last Admin: 07/26/17 02:10 Dose: 1 mg Metformin HCl (Glucophage) 850 mg PO DAILY [facility] Last Admin: 07/27/17 09:56 Dose: 850 mg Metronidazole (Flagyl) 500 mg PO Q8 ERICH PRN Reason: Protocol Last Admin: 07/27/17 05:02 Dose: 500 mg Montelukast Sodium (Singulair) 10 mg PO HS [facility] Last Admin: 07/26/17 21:36 Dose: 10 mg Multivitamins/Minerals (Therapeutic-M Tab) 1 tab PO DAILY [facility] Last Admin: 07/27/17 09:56 Dose: 1 tab Potassium Chloride (K-Dur 20 Meq Er Tab) 20 meq PO DAILY [facility] Last Admin: 07/27/17 09:56 Dose: 20 meq Prednisone (Prednisone Tab) 40 mg PO DAILY [facility] Last Admin: 07/27/17 09:56 Dose: 40 mg Fluticasone/Salmeterol (Advair Diskus 250/50) 1 puff INH RQ12 [facility] Last Admin: 07/27/17 07:15 Dose: 1 puff Thiamine HCl (Vitamin B1 Tab) 100 mg PO DAILY [facility] Last Admin: 07/27/17 09:58 Dose: 100 mg Trazodone HCl (Desyrel) 50 mg PO HS PRN PRN Reason: Insomnia Last Admin: 07/26/17 21:36 Dose: 50 mg - Labs Labs: 07/27/17 07:20 07/27/17 07:20 - Constitutional Appears: Non-toxic, No Acute Distress - Head Exam Head Exam: ATRAUMATIC - ENT Exam ENT Exam: Mucous Membranes Moist - Respiratory Exam Respiratory Exam: Clear to Ausculation Bilateral, NORMAL BREATHING PATTERN. absent: Rales, Rhonchi, Wheezes - Cardiovascular Exam Cardiovascular Exam: REGULAR RHYTHM, +S1, +S2. absent: Gallop, Rubs, Murmur - GI/Abdominal Exam GI & Abdominal Exam: Soft, Normal Bowel Sounds. absent: Distended, Firm, Guarding, Rigid, Tenderness, Organomegaly - Extremities Exam Extremities Exam: absent: Pedal Edema, Tenderness - Neurological Exam Neurological Exam: Alert, Awake, Oriented x3 - Psychiatric Exam Psychiatric exam: Normal Affect, Normal Mood - Skin Skin Exam: Dry, Intact, Normal Color, Warm Assessment and Plan - Assessment and Plan (Free Text) Assessment: Asthma exacerbation Significantly improved Chest xray 07/21: mild venous congestion. punctate nodular density at lateral aspect right midlung zone, nonspecific. heart size within normal limits. tortuous aorta. degenerative changes in spine and shoulders. duonebs q6prn Pt switched to PO steroids advair 250/50 Q12h singulair 10mg PO HS Completed 5 day course of Abx Alcohol abuse ativan 1 q4prn seizure activity thiamine 100mg PO daily folic acid 1mg PO daily multivitamin daily HTN continue HCTZ 12.5mg PO daily Diabetes last A1c 5.4 on 07/07/17, prior was 6.5 on 04/14/17 continue metformin 850mg PO daily, ISS If diarrhea onctinues, will consider switching metformin to another oral hypoglycemic agent hypoglycemia protocol Diarrhea C diff antigen is negative Imodium given to help with diarrhea Will start pt on flagyl 500 mg po Q8 Elevated LFTs Abd US showed Left hydronephrosis 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 No hydronephrosis or calculus Will check hepatitis panel Prophylactic measure pepcid 20mg PO BID Lovenox 40mg SC daily All management as per Dr. Carl Rao Patient is stable for discharge per Dr. Rao Patient is to follow up with PMD upon discharge Patient is discharged on the following medications: multivitamin #30, Folic acid 1 mg po QD #30, Thiamine 100 mg po qd, Hydrochlorothiazide 12.5 mg po qd # 30, Metformin 850 mg po qd #30, Singulair 10 mg po QD #30, Medrol dose pack, Advair 1 diskus 1 puff inh Q12 erich, Flagyl 500 mg po TID for 4 more days #12 tabs. Please return to ED if symptoms worsen. Patient will be provided list of homeless shelters.
--- NOTE | 2017-07-27 15:32 | CP.PCM.PN ---
Subjective - Date & Time of Evaluation Date of Evaluation: 07/27/17 Time of Evaluation: 07:00 - Subjective Subjective: clinically same Objective - Vital Signs/Intake and Output Vital Signs (last 24 hours): Temp Pulse Resp BP Pulse Ox 98.5 F 90 20 133/81 97 07/27/17 07:46 07/27/17 07:46 07/27/17 07:46 07/27/17 07:46 07/27/17 07:46 Intake and Output: 07/27/17 07/27/17 06:59 18:59 Intake Total 600 Balance 600 - Labs Labs: 07/27/17 07:20 07/27/17 07:20 - Constitutional Appears: Well - Head Exam Head Exam: ATRAUMATIC, NORMAL INSPECTION, NORMOCEPHALIC - Eye Exam Eye Exam: EOMI, Normal appearance, PERRL Pupil Exam: NORMAL ACCOMODATION, PERRL - ENT Exam ENT Exam: Mucous Membranes Moist, Normal Exam - Neck Exam Neck Exam: Full ROM, Normal Inspection. absent: Lymphadenopathy - Respiratory Exam Respiratory Exam: Decreased Breath Sounds - Cardiovascular Exam Cardiovascular Exam: REGULAR RHYTHM, +S1, +S2 - GI/Abdominal Exam GI & Abdominal Exam: Soft, Diminished Bowel Sounds - Rectal Exam Rectal Exam: Deferred Assessment and Plan (1) Asthma exacerbation Status: Acute (2) Alcohol abuse with intoxication Status: Chronic (3) Abdominal discomfort Status: Acute (4) Abdominal pain Status: Acute (5) Abdominal pain Status: Acute (6) Abrasion Status: Acute (7) Acute hypokalemia Status: Acute (8) Acute pancreatitis Status: Acute (9) Alcohol abuse with alcohol-induced disorder Status: Acute (10) Alcohol abuse with alcohol-induced mood disorder Status: Acute (11) Alcohol ingestion Status: Acute (12) Alcohol intoxication Status: Acute (13) Alcohol intoxication Status: Acute (14) Alcohol use Status: Acute (15) Alcohol withdrawal Status: Acute (16) Alcoholic gastritis Status: Acute (17) Asthma Status: Acute (18) Back disorder Status: Acute (19) Back pain Status: Acute (20) Back strain Status: Acute (21) Bronchitis Status: Acute (22) Burning sensation of feet Status: Acute (23) COPD exacerbation Status: Acute (24) Chest pain Status: Acute (25) Chest wall contusion Status: Acute (26) Chronic back pain Status: Acute (27) Chronic back pain Status: Acute (28) Chronic cough Status: Acute (29) Clavicle fracture, shaft Status: Acute (30) Colitis Status: Acute (31) Colitis, acute Status: Acute (32) Corneal abrasion, left Status: Acute (33) Cough Status: Acute (34) DVT prophylaxis Status: Acute (35) Depression Status: Acute (36) Depression Status: Acute (37) Depression screen Status: Acute (38) Diverticula of colon Status: Acute (39) Dyspnea Status: Acute (40) Elevated liver enzymes Status: Acute (41) Elevated transaminase level Status: Acute (42) Eye injury Status: Acute (43) Fatty liver Status: Acute (44) Finger fracture Status: Acute (45) Gastritis Status: Acute (46) Gastroenteritis Status: Acute (47) Hand fracture Status: Acute (48) Hand pain Status: Acute (49) Head injury Status: Acute (50) Hepatitis Status: Acute (51) Hypertriglyceridemia Status: Acute (52) Hypokalemia Status: Acute (53) Intoxication Status: Acute (54) Low back pain Status: Acute (55) Lumbar compression fracture Status: Acute (56) Malingering Status: Acute (57) Medication refill Status: Acute (58) Pancreatitis, alcoholic, acute Status: Acute (59) Pharyngitis Status: Acute (60) Proximal phalanx fracture of finger Status: Acute (61) Pulmonary nodule Status: Acute (62) Rash and nonspecific skin eruption Status: Acute (63) Rib contusion Status: Acute (64) Schizo affective schizophrenia Status: Acute (65) Schizoaffective disorder Status: Acute (66) Schizophrenia Status: Acute (67) Shoulder injury Status: Acute (68) Substance abuse Status: Acute (69) Testicle pain Status: Acute (70) URI (upper respiratory infection) Status: Acute (71) Urticaria Status: Acute (72) Viral syndrome Status: Acute (73) Weakness Status: Acute (74) Alcohol abuse Status: Chronic (75) Alcohol dependence Status: Chronic (76) Alcohol use disorder Status: Chronic (77) Bipolar 1 disorder, depressed Status: Chronic (78) COPD (chronic obstructive pulmonary disease) Status: Chronic (79) Depression Status: Chronic (80) Depression with suicidal ideation Status: Chronic (81) Diarrhea Status: Chronic (82) HTN (hypertension) Status: Chronic (83) HTN (hypertension) Status: Chronic (84) Hyperlipidemia Status: Chronic (85) Psychosis Status: Chronic (86) Tobacco abuse Status: Chronic
== END 2017-07-27 15:25 | disposition home or self-care (01) | DRG 96 ==
LOC: C.ER 21:46 → C.5S 07-21 00:10 → C.3T 07-24 14:43 → OBSVTOIN 07-24 15:49
PROVIDERS: ADMIT Internal Medicine Nephrology; ATTEND Internal Medicine Nephrology
PROC: HZ2ZZZZ Detoxification Services for Substance Abuse Treatment (ICD-10-PCS; principal; 2017-07-24)
DX: J45.901 Unspecified asthma with (acute) exacerbation (principal); J44.1 Chronic obstructive pulmonary disease with (acute) exacerbation; F25.9 Schizoaffective disorder, unspecified; F10.230 Alcohol dependence with withdrawal, uncomplicated; R56.9 Unspecified convulsions; N13.30 Unspecified hydronephrosis; E87.6 Hypokalemia; I10 Essential (primary) hypertension; G89.29 Other chronic pain; F10.220 Alcohol dependence with intoxication, uncomplicated; Y90.8 Blood alcohol level of 240 mg/100 ml or more; K29.20 Alcoholic gastritis without bleeding; K57.30 Diverticulosis of large intestine without perforation or abscess without bleeding; Z72.0 Tobacco use; Z59.0 Homelessness; E11.9 Type 2 diabetes mellitus without complications; E78.5 Hyperlipidemia, unspecified; K52.9 Noninfective gastroenteritis and colitis, unspecified

== ENCOUNTER 2017-07-29 23:05 | Emergency (ER) | payer OTHER ==
[2017-07-29 23:07] VITALS: BMI 25.7
[2017-07-29 23:23] VITALS: BP 113/70; PULSE 91; RESP 20; TEMP 97.8; O2SAT 100
--- NOTE | 2017-07-29 23:34 | C.PDOC ---
History Of Present Illness 56 y/o patient presents to ED for complaints of chronic leg and back pain and alcohol intoxication. Patient was seen earlier today at [facility] for same symptoms and Toradol was administered. Patient walked out of [facility] ER department and continued drinking alcohol all day. Patient now brought to ER by ambulance for public intoxication. Denies SI, HI or any other physical complaints. Time Seen by Provider: 07/29/17 23:27 Chief Complaint (Nursing): Back Pain History Per: Patient History/Exam Limitations: no limitations Onset/Duration Of Symptoms: Hrs Current Symptoms Are (Timing): Still Present Suicide/Self Injury Attempted (Context): None Modifying Factor(s): Alcohol Associated Symptoms: denies: Suicidal Thoughts, Suicidal Plan Involuntary Hold By: None Recent travel outside of the [place]: No Past Medical History Reviewed: Historical Data, Nursing Documentation, Vital Signs Vital Signs: Last Vital Signs Temp 97.8 F 07/29/17 23:19 Pulse 91 H 07/29/17 23:19 Resp 20 07/29/17 23:19 BP 113/70 07/29/17 23:19 Pulse Ox 100 07/29/17 23:34 - Medical History PMH: Anemia, Anxiety, Asthma, Back Problems, Bipolar Disorder, COPD, Depression , Diabetes, Gastritis, GERD, Hypercholesterolemia, Pancreatitis, Schizophrenia, Seizures (secondary to ETOH withdrawal), Chronic Pain (low back pain ) Surgical History: Back Surgery - [facility] ALCOHOL DETOXIFICATION (12/12/12) DETOXIFICATION SERVICES FOR SUBSTANCE ABUSE TREATMENT (07/24/17) EXCISION OF ASCENDING COLON, ENDO, DIAGN (06/18/15) EXCISION OF CECUM, ENDO, DIAGN (06/18/15) EXCISION OF DESCENDING COLON, ENDO, DIAGN (06/18/15) EXCISION OF DUODENUM, ENDO, DIAGN (06/18/15) EXCISION OF ESOPHAGOGASTRIC JUNCTION, ENDO, DIAGN (06/18/15) EXCISION OF ILEUM, ENDO, DIAGN (06/18/15) EXCISION OF LUMBAR VERTEBRA, PERCUTANEOUS APPROACH, DIAGN (07/24/16) EXCISION OF STOMACH, ENDO, DIAGN (06/18/15) GROUP PSYCHOTHERAPY (04/07/17) INDIV PSYCHOTHERAPY FOR SUBSTANCE ABUSE, COGNITIV BEHAVIORAL (04/07/17) INDIV PSYCHOTHERAPY FOR SUBSTANCE ABUSE, MOTIVATION ENHANCE (04/07/17) INDIVID PSYCHOTHERAP NEC (09/16/14) INDIVIDUAL PSYCHOTHERAPY, BEHAVIORAL (10/21/16) INDIVIDUAL PSYCHOTHERAPY, COGNITIVE-BEHAVIORAL (01/26/17) INDIVIDUAL PSYCHOTHERAPY, SUPPORTIVE (08/06/16) INJECT/INFUSE NEC (10/13/14) MEDICATION MANAGEMENT (03/12/16) OTHER COUNSELING (04/26/16) OTHER GROUP THERAPY (09/16/14) PSYCHIA INTERV/EVAL NEC (08/18/14) REPOSITION LUMBAR VERTEBRA, PERCUTANEOUS APPROACH (07/24/16) SUPPLEMENT LUMBAR VERTEBRA WITH SYNTH SUB, PERC APPROACH (07/24/16) Family History: States: Unknown Family Hx, Diabetes - Social History Hx Tobacco Use: Yes (Heavy) Hx Alcohol Use: Yes (1 pint rhum per day) Hx Substance Use: No - Immunization History Hx Tetanus Toxoid Vaccination: Yes (As per patient, TDaP uptodate ( about 3 years ago)) Hx Influenza Vaccination: No Hx Pneumococcal Vaccination: No Review Of Systems Constitutional: Negative for: Fever, Chills Gastrointestinal: Negative for: Nausea, Vomiting, Diarrhea Musculoskeletal: Positive for: Back Pain, Leg Pain Skin: Negative for: Rash Neurological: Negative for: Weakness, Numbness Psych: Negative for: Suicidal ideation Physical Exam - Physical Exam Appears: Well, Non-toxic, No Acute Distress, Other (Argumentative ) Skin: Normal Color, Warm, Dry Head: Atraumatic, Normacephalic Eye(s): bilateral: Normal Inspection Oral Mucosa: Moist Neck: Supple Chest: Symmetrical, No Tenderness Cardiovascular: Rhythm Regular Respiratory: Normal Breath Sounds, No Decreased Breath Sounds, No Rales, No Rhonchi, No Wheezing Gastrointestinal/Abdominal: Soft, No Tenderness, No Distention Back: Normal Inspection, No CVA Tenderness, No Vertebral Tenderness, No Paraspinal Tenderness Extremity: Normal ROM, No Tenderness, No Pedal Edema, No Deformity Extremity: Bilateral: Normal Color And Temperature, Normal ROM Neurological/Psych: Oriented x3, Normal Speech, Normal Cognition, Other (no focal deficits ) Gait: Steady ED Course And Treatment O2 Sat by Pulse Oximetry: 100 (RA) Pulse Ox Interpretation: Normal Medical Decision Making Medical Decision Making: chronic back pain and leg pain since 2013 seen and eval @ [facility] ED earlier today and WALKED From ED and WALKED freely today , calling ambulance many hours later (after excessive alcohol intake today) to bring him to our ED for re-eval of same issues. pt with MANY prior evals our and local ED for ETOH, mental illness, back and leg pain, no new issues today suspect malingering, persistent alcohol abuse. Disposition Doctor Will See Patient In The: Office Counseled Patient/Family Regarding: Studies Performed, Diagnosis - Disposition Referrals: Alcoholics Anonymous [Outside] [facility] [Outside] [facility] [Outside] [facility] [Outside] [facility] [Outside] [facility] [Outside] Disposition: HOME/ ROUTINE Disposition Time: 23:34 Condition: GOOD Additional Instructions: continue to seek outpatient assistance for your alcohol abuse, mental illness issues Seek outpatient eval for your chronic back/leg pains you may NOT stay in the ED overnight without and ACUTE MEDICAL CONDITION. Instructions: Chronic Pain (DC), Effects of Alcohol on Your Health Forms: [facility] (Slovenian) - Clinical Impression Clinical Impression: Alcohol abuse, Chronic back pain - Scribe Statement The provider has reviewed the documentation as recorded by the Scribroosevelt Duenas All medical record entries made by the Scribe were at my direction and personally dictated by me. I have reviewed the chart and agree that the record accurately reflects my personal performance of the history, physical exam, medical decision making, and the department course for this patient. I have also personally directed, reviewed, and agree with the discharge instructions and disposition.
== END 2017-07-29 23:44 | disposition home or self-care (01) ==
LOC: C.ER 23:05
DX: F10.10 Alcohol abuse, uncomplicated (principal); Y90.9 Presence of alcohol in blood, level not specified; G89.29 Other chronic pain; M54.9 Dorsalgia, unspecified